=== PATIENT | male | born 1930 | race Caucasian/White ===

== ENCOUNTER 2018-12-23 09:52 | Inpatient (IN) ==
[2018-12-23 10:48] LABS: ALBUMIN 3.7 g/dL (3.5-5.0); CALCIUM 9.9 mg/dL (8.8-10.2); CREATININE 1.2 mg/dL (0.7-1.2); POTASSIUM 4.1 mmol/L (3.5-5.1); TOTAL BILIRUBIN 7.6 mg/dL (0.20-1.00); TOTAL PROTEIN 5.8 g/dL (6.3-8.3)
--- NOTE | 2018-12-23 10:57 | Diag Imaging Result Doc PS360 ---
EXAM: CT HEAD W/O CONTRAST HISTORY: fall TECHNIQUE: CT head without contrast COMPARISON: 04/23/2014 FINDINGS: No parenchymal hemorrhage. No epidural or subdural hematoma. No subarachnoid hemorrhage. Prominent atrophy. There are chronic microvascular ischemic changes with old lacunar infarcts. No mass identified on this noncontrasted exam. No hydrocephalus. No skull fracture. IMPRESSION: 1.No hemorrhage. No injury. 2.Atrophy 3.Chronic ischemic changes with old lacunar infarcts. This exam was performed using automated exposure control, adjustment of mA or kV according to patient size, and/or use of iterative reconstruction technique. Electronically signed by Kushal Kumar 12/23/2018 10:55 AM
--- NOTE | 2018-12-23 11:02 | Diag Imaging Result Doc PS360 ---
CHEST-2 VIEWS - 12/23/2018 INDICATION: fall COMPARISON: 04/23/2014 FINDINGS: Stable left-sided dual-chamber pacemaker. Heart size and pulmonary vascularity appears somewhat enlarged. Lung volumes are much lower. There is some nonspecific ill-defined lower lobe atelectasis or infiltrate bilaterally. IMPRESSION: Nonspecific findings. Electronically signed by Yoni Massey 12/23/2018 11:00 AM
[2018-12-23 11:03] LABS: BASO# 0.01 X1000 (0.0-0.2); BASO% 0.1 % (0.0-0.8); HEMATOCRIT 37.3 % (42.0-52.0); HEMOGLOBIN 13.1 g/dL (14.0-18.0); IMM GRAN# 0.07 X1000 (0.0-0.04); IMM GRAN% 0.5 % (0.0-0.5); LYMPH% 2.3 % (20.5-51.1); MCH 32.3 PG (27-31); MCHC 35.1 g/dL (33-37); MCV 91.9 FL (81-99); MONO# 0.94 X1000 (0.11-0.59); MONO% 7.2 % (1.7-9.3); MPV 10.5 FL (7.4-10.4); NEUT# 11.69 X1000 (1.4-6.5); NEUT% 89.9 % (42.2-75.2); PLT 138 X1000 (130-400); RBC 4.06 XMIL (4.7-6.1); RDW 12.5 % (11.5-14.5); WBC 13.01 X1000 (4.8-10.8)
[2018-12-23 11:04] LABS: INR 1.53; PROTIME 19.1 Seconds (11.0-16.0); PTT 29.7 Seconds (22.3-41.8)
[2018-12-23 11:11] LABS: CK INDEX 1.3 (0.0-2.5); CK-MB 12.98 ng/mL (0.0-5.0)
[2018-12-23 12:38] LABS: BILIRUBIN URINE 2+ (NEGATIVE); BLOOD URINE 4+ (NEGATIVE); CLARITY SL. CLOUDY (CLEAR); COLOR AMBER; GLUCOSE URINE NEGATIVE (NEGATIVE); KETONE URINE TRACE mg/dL (NEGATIVE); LEUKOCYTES URINE 1+ (NEGATIVE); NITRITE URINE POSITIVE (NEGATIVE); PROTEIN URINE 2+(100 mg/dL) mg/dL (NEGATIVE); UROBILINOGEN URINE 8 mg/dL
--- NOTE | 2018-12-23 12:52 | Diag Imaging Result Doc PS360 ---
CT ABD/PELVIS/PULM ARTERIES - 12/23/2018 INDICATION: eleve d-dimer and bili (eval for pte and GB dz) TECHNIQUE: Axial CT images were obtained after administering intravenous contrast. Coronal MIP images were generated. COMPARISON: 07/31/2011 FINDINGS: CHEST: There is no pulmonary embolism. Stable left-sided pacemaker. There is moderate cardiomegaly. There is advanced calcified coronary artery disease. There is also moderately advanced calcified vascular disease of the aortic arch, great vessels, and descending aorta. There is advanced COPD. There is bilateral dependent atelectasis in the costophrenic angles. No suspicious infiltrates. Major airways are all clear. Bones are intact. Abdomen pelvis: The gallbladder is very distended and there is surrounding inflammation. No biliary dilation. There are several cysts of the left kidney which have increased in size. The right kidney remains normal. The pancreas, spleen, and both adrenal glands are stable from prior. There has been increase in size of the fusiform abdominal aortic aneurysm. This measures 4.3 x 3.9 cm. No bowel obstruction or inflammation. Urinary bladder, prostate, and rectum are normal. Bony structures are intact. There is advanced degeneration of the spine. IMPRESSION: 1. Negative for pulmonary embolism. 2. Cardiomegaly. 3. Acute cholecystitis. 4. Enlarging abdominal aortic aneurysm. This exam was performed using automated exposure control, adjustment of mA or kV according to patient size, and/or use of iterative reconstruction technique Electronically signed by Yoni Massey 12/23/2018 12:49 PM
[2018-12-23 12:56] LABS: URINE BACTERIA 1+ /HFP; URINE EPITHELIAL CELLS <10 /HPF (<10)
[2018-12-23 12:57] LABS: URINE SOURCE CLEAN CATCH
[2018-12-23] MEDS ORDERED: ZOSYN 3.375 GM in NS 50 ML IV ONE (13:00)
--- NOTE | 2018-12-23 14:56 | EKG Report ---
Test Performed on : 12/23/2018 10:19:24 AM Test Reason : ER Blood Pressure : / mmHG Vent. Rate : 084 BPM Atrial Rate : 084 BPM P-R Int : 202 ms QRS Dur : 110 ms QT Int : 402 ms P-R-T Axes : 049 -33 -27 degrees QTc Int : 475 ms Sinus rhythm. with occasional ventricular-paced complexes and with occasional premature ventricular c omplexes. Left axis deviation T wave abnormality, consider anterolateral ischemia Prolonged QT Abnormal ECG When compared with ECG of 23-APR-2014 19:45, Electronic ventricular pacemaker has replaced Electronic atrial pacemaker Unconfirmed Result
--- NOTE | 2018-12-23 15:05 | EKG Report ---
Test Performed on : 12/23/2018 10:00:07 AM Test Reason : ER Blood Pressure : / mmHG Vent. Rate : 095 BPM Atrial Rate : 095 BPM P-R Int : 204 ms QRS Dur : 110 ms QT Int : 378 ms P-R-T Axes : 051 -46 -16 degrees QTc Int : 475 ms Sinus rhythm. with frequent and consecutive premature ventricular complexes. Left anterior fascicular block T wave abnormality, consider anterolateral ischemia Prolonged QT Abnormal ECG No previous ECGs available Unconfirmed Result
[2018-12-23] MEDS ORDERED: LR 1,000 ML ONE (16:08)
[2018-12-23] MEDS ORDERED: MARCAINE 0.25% PF/EPI 1:200,000 ONE (16:08)
[2018-12-23] MEDS ORDERED: SODIUM CHLORIDE 0.9% ONE (16:08)
--- NOTE | 2018-12-23 16:27 | HISTORY AND PHYSICAL ---
CHIEF COMPLAINT: Abdominal pain. HISTORY OF PRESENT ILLNESS: This is an 88-year-old male who was in his usual state of health when he was awakened 2 nights ago with severe abdominal pain in his upper and right side of the abdomen. He took some Tums, and this seemed to help; however, yesterday he was somewhat confused, according to his family, and they were keeping a close eye on him, and then today he looked unsteady and confused and fell and so they called the ambulance and took him to the emergency room. Workup in the emergency room reveals leukocytosis, elevated bilirubin and liver function tests, a positive urinalysis, and imaging of his abdomen concerning for acute cholecystitis. Currently the patient denies abdominal pain, nausea, vomiting, headache, shortness of breath, chest pain, or other systemic complaints. PAST MEDICAL HISTORY: Hypertension, dementia, testicular cancer, lymphoma, hypothyroidism. PAST SURGICAL HISTORY: Pacemaker placement, hernia surgery. HOME MEDICATIONS: Levothyroxine, medroxyprogesterone, vitamin B1, thiamine, tamsulosin, losartan, metoprolol, amantadine, ranitidine, oxcarbazepine, donepezil, and risperidone. ALLERGIES: No known drug allergies. FAMILY HISTORY: Reviewed and noncontributory. SOCIAL HISTORY: Negative for tobacco, alcohol, or illicit drug use. He lives alone but has an attentive family. REVIEW OF SYSTEMS: Ten systems reviewed and negative except as noted above. PHYSICAL EXAMINATION: VITAL SIGNS: Temperature 97.9 degrees, pulse 87, respirations 20, blood pressure 141/70, O2 saturation 95%. GENERAL: An elderly male who looks his stated age, in no acute distress. HEENT: Normocephalic, atraumatic. Extraocular muscles intact. Pupils equal, round, and reactive to light. Sclerae mildly icteric. Moist mucous membranes. NECK: Supple. No thyromegaly. CARDIOVASCULAR: Regular rate and rhythm. RESPIRATORY: Bilateral breath sounds. No work of breathing. GASTROINTESTINAL: Soft, nondistended. No organomegaly or mass. He is tender in the epigastrium and right upper quadrant. No rebound or guarding. EXTREMITIES: No clubbing, cyanosis, or edema. MUSCULOSKELETAL: Moves all extremities equally and well. DIAGNOSTIC STUDIES: White blood cell count 13, hemoglobin 13, hematocrit 37, platelet count 138,000. INR 1.5, PTT 29.7. Sodium 134, potassium 4.1, chloride 101, CO2 of 19, BUN 28, creatinine 1.2, glucose 130, total bilirubin 7.6, AST 413, ALT 236, alkaline phosphatase 115. Serum lactate 2.0. Troponin normal. Urinalysis positive for nitrite and white blood cells and 1+ bacteria. CT of chest, abdomen, and pelvis was reviewed, which showed no pulmonary embolus. There is cardiomegaly and calcific coronary artery disease. He has calcific vascular disease of the aortic arch and great vessels. He does have advanced COPD and some dependent atelectasis. No suspicious infiltrates. He has a very distended gallbladder with surrounding inflammation, but no biliary dilation. There are several cysts on the left kidney. There is a fusiform abdominal aortic aneurysm which is infrarenal and measures 4.3 x 3.9 cm. No bowel obstruction. The bladder, prostate, and rectum are normal. Bony structures are intact. There is advanced degeneration of the spine. ASSESSMENT AND PLAN: 1. This 88-year-old male who presents with abdominal pain, confusion, and diagnostic data consistent with acute cholecystitis. 2. He probably has a urine urinary tract infection as well. He has been given a dose of Zosyn. I have recommended laparoscopic cholecystectomy to him. We went over the risks, benefits, and alternatives, including bleeding, infection, injury to surrounding organs such as the intestines or bile duct, perioperative pneumonia, arrhythmia, heart attack, and other imponderables. He understands and agrees to proceed. cc: Tj Bowers MD
[2018-12-23] MEDS ORDERED: FENTANYL ONE (16:36)
[2018-12-23] MEDS ORDERED: QUELICIN (DOSE) ONE (16:41)
[2018-12-23] MEDS ORDERED: ROBINUL ONE (16:41)
[2018-12-23] MEDS ORDERED: AMIDATE ONE (16:41)
[2018-12-23] MEDS ORDERED: XYLOCAINE-MPF 2% ONE (16:41)
[2018-12-23] MEDS ORDERED: NEO-SYNEPHRINE ONE (16:41)
[2018-12-23] MEDS ORDERED: ZOFRAN ONE (16:41)
[2018-12-23] MEDS ORDERED: BREVIBLOC ONE (18:29)
--- NOTE | 2018-12-23 18:47 | Diag Imaging Result Doc PS360 ---
EXAM: OPERATIVE CHOLANGIOGRAM HISTORY: [facility] TECHNIQUE: Intraoperative cholangiogram, single view COMPARISON: None. FINDINGS: Contrast fills the common bile duct and has emptied into the duodenum. There is reflux into the pancreatic duct. No stone or stricture. IMPRESSION: Normal intraoperative cholangiogram. Electronically signed by Kushal Kumar 12/23/2018 6:45 PM
[2018-12-23] MEDS ORDERED: NS 1,000 ML ONE (19:05)
[2018-12-23] MEDS: DILAUDID ONE ×4 (19:05→19:27)
[2018-12-23] MEDS ORDERED: ADENOCARD IV ONE (19:15)
--- NOTE | 2018-12-23 19:23 | OPERATIVE NOTE ---
PROCEDURE DATE: 12/23/2018 PREOPERATIVE DIAGNOSIS: Acute cholecystitis. POSTOPERATIVE DIAGNOSIS: Acute cholecystitis. PROCEDURE: Laparoscopic cholecystectomy with operative cholangiogram. SURGEON: Tj Bowers MD. DYNAMO REPAIRER: Salazar Mace MD. ANESTHESIA: General. ESTIMATED BLOOD LOSS: 50 mL. COMPLICATIONS: None apparent. SPECIMENS: Gallbladder. DRAINS: One #19 Qasim. FINDINGS: The gallbladder was acutely inflamed and gangrenous in areas. It was filled with sludge-like bile. The cholangiogram revealed normal proximal hepatic radicles and distal common bile duct with flow of contrast seen in the duodenum. No filling defects or stenoses appreciated. TECHNIQUE: The patient was brought to the operating room and placed supine on the table. General anesthesia was induced. A Good catheter was placed. He was prepped and draped in usual sterile fashion 0.25% Marcaine with epinephrine was used to anesthetize our incisions. An incision was made at the umbilicus with a knife. The fascia was exposed and incised sharply. Entry into the peritoneal cavity was obtained under direct vision with the Optiview device. Pneumoperitoneum was established. The camera was inserted. There was no evidence of injury to underlying structures. He was placed in reverse Trendelenburg and left rotation. Survey of the abdomen revealed the above findings. Dr. Mace was present and helpful throughout the case with retracting the gallbladder and assisting with exposure and identification of the critical structures. The dome of the gallbladder was punctured with the suction cut out operator and we suctioned out bile for better grasping and retraction. The dome of the gallbladder was then grasped with a corkscrew and lifted up superiorly. Omental adhesions were taken off the wall of the gallbladder bluntly with the suction tip and a Kittner dissectors. A fan retractor was brought in through a separate right lateral abdominal incision and port and held down the omentum and colon out of the way. I dissected out the triangle of Calot with the Maryland forceps and a Kittner until the critical view was obtained. The gallbladder liver junction was seen. There were only 2 structures entering the gallbladder, the cystic duct and cystic artery. The artery was clipped proximally and distally and incised in between with scissors. A clip was placed on the distal cystic duct. A ductotomy was made proximal to this with scissors. A 14-gauge Angiocath was passed through the right upper quadrant. The Taut cholangiogram catheter was passed through this into the cystic duct and held in place with a clip. The cholangiogram was performed with findings as noted above. The clip, catheter, and Angiocath were removed. Three clips were placed, staying inside the cystic duct. It was divided distal to these with scissors. I then began taking the gallbladder off of the liver bed using hook cautery. The back wall of the gallbladder was fused to the liver and the plane was obliterated between the 2. The gallbladder was very friable. It opened up and all the sludge and bile emptied out. We suctioned this out with the suction cut out operator. The gallbladder was removed from the liver bed. After it was removed, it was placed in an EndoCatch bag. I then irrigated it copiously with saline. There was minor bloody oozing from the liver bed which was controlled with cautery and Surgicel gauze. Once I was satisfied that there was no further bleeding, I then copiously irrigated with saline and suctioned out the old blood, bile and sludge. I brought in a #19 Qasim drain and placed it below the edge of the liver in the gallbladder fossa and brought it out through the right lateral port site. It was anchored to the skin with 3-0 nylon. We then removed all the instruments and ports and brought the gallbladder and bag out through the umbilical port site. The umbilical fascia was closed with a figure-of- eight 0 Vicryl x2. The skin was closed with 4-0 subcuticular Monocryl and Steri-Strips. There were no apparent complications. He was awakened in stable condition and transferred to the recovery room. cc: Tj Bowers MD
[2018-12-23] MEDS ORDERED: CARDIZEM IV ONE (20:01)
[2018-12-23] MEDS ORDERED: CARDIZEM 125 MG in D5W 100 ML IV SCH (20:15)
[2018-12-23] MEDS ORDERED: ZOFRAN IV PRN (20:57)
[2018-12-23] MEDS: NS 1,000 ML IV SCH (22:10)
[2018-12-23] MEDS: ZOSYN 3.375 GM in NS 50 ML IV SCH (22:16)
[2018-12-23] MEDS: BUPRENEX IV PRN (22:17)
[2018-12-24] MEDS: COZAAR PO SCH ×2 (00:22→08:44)
[2018-12-24] MEDS: ZANTAC PO SCH ×3 (00:24→20:29)
[2018-12-24] MEDS: FLOMAX PO SCH ×3 (00:24→08:46)
[2018-12-24] MEDS: RISPERDAL PO SCH ×2 (00:25→20:30)
[2018-12-24] MEDS: TOPROL XL PO SCH ×3 (00:25→20:29)
[2018-12-24] MEDS ORDERED: TYLENOL PR PRN (00:28)
[2018-12-24] MEDS ORDERED: OFIRMEV 1000 MG/ISOTONIC SOLN 1,000 MG/100 ML BOTTLE IV ONE (00:29)
[2018-12-24 00:50] LABS: HEMATOCRIT 36.9 % (42.0-52.0); HEMOGLOBIN 12.8 g/dL (14.0-18.0)
[2018-12-24] MEDS: ZOSYN 3.375 GM in NS 50 ML IV SCH ×4 (03:45→20:28)
[2018-12-24] MEDS ORDERED: NS 500 ML IV ONE (03:47)
[2018-12-24] MEDS: NS 1,000 ML IV SCH ×2 (04:36→20:28)
--- NOTE | 2018-12-24 06:57 | CONSULTATION ---
DATE OF CONSULTATION: 12/23/2018 CONSULTING PROVIDER: Tj Bowers MD. REASON FOR CONSULTATION: SVT. HISTORY OF PRESENT ILLNESS: Mr. Hannon is an 88-year-old male who came in today from the emergency room after having severe abdominal pain two nights ago on the right side of his abdomen, right upper quadrant mostly. He took Tums and did not have any relief. He started having some unsteadiness and some confusion and came into the emergency room. It looked like the CT of the his chest, abdomen and pelvis showed a fusiform abdominal aortic aneurysm that was 4.3 x 3.9 but also showed a very distended gallbladder with surrounding inflammation, which was consistent with acute cholecystitis. He was given Zosyn and taken to the OR by Dr. Bowers, where he had a laparoscopic cholecystectomy and a cholangiogram. From what I understand, the surgery went well. He had a MELINDA drain that was left in place. The patient unfortunately started having some SVT after the procedure, and the hospitalist group was consulted for management. He will go to the ICU for further evaluation and treatment. PAST MEDICAL HISTORY: Hypertension, dementia, testicle cancer, lymphoma, hypothyroidism. PREVIOUS SURGICAL HISTORY: Pacemaker placement, hernia surgery, cholecystectomy. FAMILY HISTORY: Could not be reviewed as the patient was very lethargic on examination, related to pain medicine and recent anesthesia. ALLERGIES: No known drug allergies. SOCIAL HISTORY: No tobacco, alcohol or illicit drugs. Lives alone with an attendant family. HOME MEDICATIONS: Levothyroxine, vitamin B1, thiamine, Flomax, losartan, metoprolol, amantadine, ranitidine, oxcarbazepine, donepezil, risperidone. REVIEW OF SYSTEMS: A review of systems could not be completed as the patient was again very sedated. He did reflex a deep stimulus but only made moaning noises. He did not answer any questions during the examination. PHYSICAL EXAMINATION: VITAL SIGNS: Temperature 97.9, pulse 136, respirations 28, oxygen saturation is 94% on 2 L nasal cannula, blood pressure 159/88. GENERAL: An 88-year-old male lying in the ER stretcher. He is status post surgery and still somewhat sedated. He does reflex to stimulus. He is in no acute distress. HEENT: The head is atraumatic and normocephalic. The pupils are miotic, equal, round, pinpoint, and sluggishly reactive to light. Extraocular eye movement is intact. The sclerae are jaundiced. The conjunctivae are pink. The oral mucosa is dry. NECK: Supple. No JVD. No thyromegaly. The trachea is midline. No cervical lymphadenopathy. CARDIAC: S1, S2 appreciated. Tachycardic. Somewhat irregular. No murmurs, gallops, or rubs. LUNGS: Clear to auscultation bilaterally. Poor inspiratory effort. No rhonchi, wheezes, or rales. ABDOMEN: Soft, nondistended. Tender in the right upper and lower quadrant. MELINDA drain draining well. Surgical dressing clean, dry, and intact. Bowel sounds present in all four quadrants. Normoactive. EXTREMITIES: No cyanosis, clubbing, or edema. 2+ pedal pulses. NEUROLOGICAL: Lethargic, status post pain medication as well as surgical sedation. Does not respond verbally. Does reflex to deep stimulus. Cranial nerves could not be tested. DIAGNOSTIC DATA: CT report as in HPI. LABORATORY DATA: White blood cell count 13.01, hemoglobin 13.1, hematocrit 37.3, platelet count 138,000. Sodium 134, potassium 4.1, chloride 101, carbon dioxide 19, BUN 28, creatinine 1.2, glucose 130. Total bilirubin 7.60. Urine: Nitrate positive, 1+ bacteria, 1+ wbc's, 10 to 20 microscopic wbc's. ASSESSMENT AND PLAN: 1. Acute cholecystitis, status post cholecystectomy. We will continue Zosyn, continue Buprenex as needed for pain control, which was ordered by Dr. Bowers. 2. Sinus tachycardia with premature supraventricular beats. He was given esmolol and adenosine which did not slow his heart rate. He will be placed in the intensive care unit . Give 10 mg of Cardizem and then start a Cardizem drip for rate control. We will consider cardiology consultation if necessary. Echocardiogram in the a.m. 3. Urinary tract infection (UTI). Continue Zosyn. Urine culture is pending. 4. Hypertension. Continue home medications. 5. Hypothyroidism. Check thyroid stimulating hormone (TSH). 6. Fluid volume depletion. He received some bolusing. We will continue gentle fluid hydration. 7. Further recommendations per patient's clinical course. I thank Dr. Bowers for this consultation. Dictated by JERALD Llanos for Clifford Duenas MD I have performed a face to face diagnostic evalution. Labs/ xrays- reviewed. Exam- Abd- tender A/P- Acute cholecystitis- Admit,NPO, General surgery consult. Dr. Duenas cc: JERALD Llanos MD Jason R. Seale, MD [facility]
[2018-12-24] MEDS: SYNTHROID PO SCH (08:43)
[2018-12-24] MEDS: PROSCAR PO SCH (08:43)
[2018-12-24] MEDS: ARICEPT PO SCH (08:43)
[2018-12-24] MEDS: CENTRUM SILVER PO SCH (08:43)
[2018-12-24] MEDS: VITAMIN B-1 PO SCH (08:43)
[2018-12-24] MEDS: NAMENDA PO SCH ×2 (08:43→20:28)
--- NOTE | 2018-12-24 08:59 | EKG Report ---
Test Performed on : 12/23/2018 8:14:52 PM Test Reason : ICU. NO EKG ORDER FOR MUSE Blood Pressure : / mmHG Vent. Rate : 136 BPM Atrial Rate : 136 BPM P-R Int : 144 ms QRS Dur : 134 ms QT Int : 294 ms P-R-T Axes : -14 202 025 degrees QTc Int : 442 ms Sinus tachycardia. with premature supraventricular complexes. Right bundle branch block Abnormal ECG When compared with ECG of 23-DEC-2018 10:19, (Unconfirmed) Sinus rhythm. has replaced Electronic ventricular pacemaker Vent. rate has increased BY 52 BPM Confirmed by Greyson GRACE, Carlton Ferro ([id number]) on 12/24/2018 3:52:36 PM
--- NOTE | 2018-12-24 09:20 | PROGRESS NOTE ---
DATE: 12/24/2018 SUBJECTIVE: This morning, Mr. Hannon refers to be feeling a whole lot better. The son was at the bedside at the time of the encounter. OBJECTIVELY: Vital signs: Blood pressure is currently 108/41, pulse of 85, respirations 21, temperature 98.1 degrees, patient is saturating 95% on room air. General: Mr. Hannon is an 88- year-old gentleman. He is in bed in no distress. HEENT: Mucosa is pink and moist. Anicteric. Acyanotic. Neck: Supple. Chest: Good air entry bilateral. There were no crepitations, no rhonchi. Cardiovascular: Regular rate and rhythm. There is a pacemaker generator on the left anterior chest wall. Abdomen: Soft. Recent laparoscopic wounds on the anterior abdominal wall are covered with sterile dressing. There is a MELINDA drain in the right upper quadrant. Extremities: No pedal edema. Central nervous system: Patient is awake, alert, and oriented. LABORATORY DATA: None for this morning yet, still waiting. Blood cultures 2/2 are positive for gram-negative rods. Surgery report has been reviewed. Findings were consistent with a gangrenous gallbladder which has been removed. Intraoperative cholangiogram was normal. ASSESSMENT: 1. Sepsis on presentation secondary to acute cholecystitis complicated with gram-negative dutch bacteremia. The patient is currently on adequate antimicrobial coverage. However, because he has a pacemaker which could potentially be seeded, we will get Infectious Disease to help us manage this complicated infection pathology. 2. Acute gangrenous cholecystitis. The patient is status post laparoscopic cholecystectomy with intraoperative cholangiogram which was normal. 3. Gram-negative dutch bacteremia, most likely coming from the gallbladder infection. We are pending the ID and sensitivity and then modify the antibiotic accordingly. 4. Transaminitis. Presumably due to trauma during surgery versus ischemic liver injury. We are going to continue to monitor this. 5. History of hypertension. The patient did have multiple episodes of low blood pressure readings, so we will withhold his antihypertensive medications for now. 6. Status post pacemaker. The indication is unclear. Patient has had this for the past 20 years. According to him, it was because of cardiac arrhythmia. PLAN: In general, Mr. Hannon seems to be doing fairly okay. He has been started on clears since yesterday. He is day 1 status post laparoscopic cholecystectomy. Findings were consistent with gangrenous cholecystitis. This has been complicated with gram-negative bacteremia. Patient was septic. He has a pacemaker which has potential to have been seeded, so ID has been consulted. cc: Raoul Jeffries MD
[2018-12-24 10:00] LABS: HEMATOCRIT 34.9 % (42.0-52.0); HEMOGLOBIN 11.9 g/dL (14.0-18.0); MCH 32.7 PG (27-31); MCHC 34.1 g/dL (33-37); MCV 95.9 FL (81-99); MPV 11.1 FL (7.4-10.4); RBC 3.64 XMIL (4.7-6.1); WBC 7.52 X1000 (4.8-10.8)
[2018-12-24 10:26] LABS: ALB/GLOB RATIO 0.9; ALBUMIN 2.5 g/dL (3.5-5.0); CREATININE 1.8 mg/dL (0.7-1.2); POTASSIUM 4.3 mmol/L (3.5-5.1); TOTAL BILIRUBIN 5.88 mg/dL (0.20-1.00); TOTAL PROTEIN 5.2 g/dL (6.3-8.3)
[2018-12-24 11:02] LABS: BILIRUBIN URINE SMALL (NEGATIVE); BLOOD URINE LARGE (NEGATIVE); COLOR YELLOW; GLUCOSE URINE NEGATIVE (NEGATIVE); KETONE URINE NEGATIVE (NEGATIVE); LEUKOCYTES URINE NEGATIVE (NEGATIVE); NITRITE URINE NEGATIVE (NEGATIVE); PH URINE 5.5; PROTEIN URINE 50 mg/dL (NEGATIVE); TURBIDITY URINE HAZY (CLEAR); UROBILINOGEN URINE 3 mg/dL (NORMAL)
[2018-12-24 11:03] LABS: URINE SOURCE CATH
[2018-12-24 11:07] LABS: UR EPITHELIAL CELLS <10 /HPF (<10); URINE BACTERIA 2+ /HPF; URINE RBC <10 /HPF (<10); URINE WBC <10 /HPF (<10)
[2018-12-24 11:08] LABS: URINE CASTS GRANULAR PRESENT; URINE CRYSTALS NONE SEEN; URINE SMALL ROUND CELLS NONE SEEN; URINE YEAST NONE SEEN
--- NOTE | 2018-12-24 14:19 | INFECTIOUS DISEASE CONSULT REP ---
DATE: 12/24/2018 CONCLUSION: The patient has a gram-negative dutch bacteremia which most likely originates from the patient's acute cholecystitis. RECOMMENDATIONS: I agree with treating the patient with Zosyn pending the identification of the gram-negative dutch. The patient will require 6 weeks of most likely IV antibiotics for 2 reasons: (1) The patient has a pacemaker which could have become infected hematogenously and (2) The patient has an enlarging aortic aneurysm which also could be infected hematogenously as well. DISCUSSION: The patient was admitted to the hospital with a 2-day history of abdominal pain and fever. He on CT scan was found to have acute cholecystitis. The patient underwent laparoscopic cholecystectomy with operative cholangiogram performed by Dr. Bowers. The patient's CBC shows a white count of 7520, hemoglobin 11.9 and platelet count 108,000. Creatinine is 1.8. GFR is 36. Urine culture is negative. Blood culture is growing a gram-negative dutch. The patient's CT scan shows an acute cholecystitis and an enlarging aortic aneurysm. The patient also has had placement of a permanent pacemaker. PAST MEDICAL HISTORY/REVIEW OF SYSTEMS: Eyes: Patient has decreased hearing, but his vision is okay. Neck: No stiffness. Respiratory: No cough or shortness of breath. Cardiac: No chest pain or palpitations. GI: See present illness. : No dysuria or flank pain. Endocrine: The patient has hypothyroidism, but he does not have diabetes. Bones, joints, muscles: The patient did not have any swollen joints or muscle aches. Neurologic: Patient has not had any seizures. He has not recently lost any motor or sensory function. PREVIOUS HOSPITALIZATIONS AND OPERATIONS: Patient has had a pacemaker installed. Other than that, he told me he had not been in the hospital or had any other surgery. MEDICAL DISEASES: Positive for hypothyroidism, aortic aneurysm, hypertension, non-Hodgkin lymphoma, cardiac arrhythmia requiring placement of a pacemaker, and the patient has had acute cholecystitis and has undergone laparoscopic cholecystectomy. INFECTIOUS DISEASE: No history of pneumonia or urinary tract infection. FAMILY HISTORY: Positive for hypertension, myocardial infarction, stroke and cancer. SOCIAL HISTORY: [place] His recently . He stopped smoking cigarettes about 1989. He also stopped drinking alcoholic beverages a few years back. He does not abuse drugs. He is retired from working at [employer]. He has a dog as a pet. ALLERGIES: The patient's chart lists no known drug allergies. HOME MEDICATIONS: Include the following: Aspirin, calcium, Aricept, Cardura, Pepcid, Proscar, hydrocodone, Synthroid, losartan, Provera, Namenda, metoprolol, Zantac, risperidone, tamsulosin, and thiamine. PHYSICAL EXAMINATION: Vital Signs: Temperature was 101 degrees, now it is 100, pulse 79, respirations 18, blood pressure 147/57. Patient is 5 feet 9 inches tall, weighs 176 pounds. General: This is an ill-appearing elderly male. He is somewhat confused. Head/eyes/ears/nose/throat: He can hear my spoken words and see near objects. He does not have any white patches on his tongue. Neck: No meningismus. Lungs: Clear to auscultation. Cardiovascular: Heart rate is irregular. Thorax: The patient has a pacemaker present on the left side. The site is not erythematous or swollen. The patient also has an increased AP diameter of the chest. Abdomen: Soft and nontender. The patient's small incisions have dressings on them. The patient has a drain present at the right upper quadrant. Neurologic: The patient is awake; sometimes he was confused. He can move his extremities. There is no tremor. As regarding his medical history, the patient's memory miss some things. Integument: No rash noted. Thank you for the consult. cc: MD Raoul Call MD [facility]
--- NOTE | 2018-12-24 14:44 | GENERAL SURGERY PROGRESS NOTE ---
DATE: 12/24/2018 SUBJECTIVE: The patient denies abdominal pain, nausea, vomiting, chest pain, or shortness of breath. He did have some urinary retention last night. A Good catheter was placed and he had 900 mL out at that time. He also has had supraventricular tachycardia and PVCs and has been in the ICU. Cardizem was given. His heart rate has mostly been in the 90s and low 100s this morning with occasional PVCs and SVT. Hospitalist on board and assisting with this. OBJECTIVE: Vital signs: T-max 101 last night at midnight, current temperature 98.7 degrees, pulse 103, respirations 18, blood pressure 147/57, O2 saturation 96%. General: An elderly male in no distress, who looks stated age. CV: Tachycardic. Respiratory: Bilateral breath sounds. No work of breathing. Gastrointestinal: Soft, nondistended. Appropriately tender. Incision is clean, dry, and intact. Right MELINDA drain with mostly bloody-brownish fluid. LABORATORY: White cell count 7.5, hemoglobin 11.9, hematocrit 34.9, platelet count 108,000. Complete metabolic profile reviewed and notable for BUN 39, creatinine 1.8, total bilirubin 5.9, AST 187, ALT 145. ASSESSMENT AND PLAN: This is an 88-year-old male status post laparoscopic cholecystectomy for gangrenous cholecystitis. He has postoperative supraventricular tachycardia. He is in the ICU, being managed by the hospitalist for this. He will remain on Zosyn for the gangrenous cholecystitis with peritoneal contamination. Also, he had a urinalysis concerning for a UTI. I will continue his IV fluids, advance him to a full liquid diet, and again mobilizing him. cc: MD Raoul Salazar MD
[2018-12-24] MEDS: NORCO-7.5 PO PRN (20:29)
[2018-12-24] MEDS ORDERED: LOVENOX SUBQ SCH (21:00)
--- NOTE | 2018-12-24 21:41 | Diag Imaging Result Doc PS360 ---
EXAM: CHEST-1 VIEW INDICATION: positive sepsis screen TECHNIQUE: One view COMPARISON: 12/23/2018 FINDINGS: There has been improvement in atelectasis and/or infiltrate at the right lung base. On the left, it is approximately stable. Prominent central vasculature are stable. No new consolidation is identified. Cardiac silhouette is stable. IMPRESSION: Interval improvement on the right as described. Stable chest, otherwise. Electronically signed by Vidal Garcia 12/24/2018 9:38 PM
[2018-12-24 21:49] LABS: LYMPH# 0.43 X1000 (1.2-3.4); LYMPH% 6.3 % (20.5-51.1); MCH 32.4 PG (27-31); MCHC 34.3 g/dL (33-37); MCV 94.6 FL (81-99); MONO# 0.43 X1000 (0.11-0.59); MONO% 6.3 % (1.7-9.3); MPV 10.4 FL (7.4-10.4); NEUT# 6.01 X1000 (1.4-6.5); NEUT% 87.4 % (42.2-75.2); PLT 107 X1000 (130-400); RDW 12.8 % (11.5-14.5); WBC 6.87 X1000 (4.8-10.8)
[2018-12-24 21:56] LABS: INR 1.43; PROTIME 18.6 Seconds (11.0-16.0)
[2018-12-24 21:57] LABS: PTT 41.7 Seconds (22.3-41.8)
[2018-12-24 22:00] LABS: BANDS 5 % (0-1); LYMPHS 7 % (21-51); MONO 5 % (1-9); SEGS 83 % (42-75)
[2018-12-24 22:31] LABS: ALB/GLOB RATIO 1.5; ALBUMIN 2.8 g/dL (3.5-5.0); CALCIUM 8.2 mg/dL (8.8-10.2); CREATININE 1.4 mg/dL (0.7-1.2); POTASSIUM 3.9 mmol/L (3.5-5.1); TOTAL BILIRUBIN 3.4 mg/dL (0.20-1.00); TOTAL PROTEIN 4.7 g/dL (6.3-8.3)
[2018-12-24 23:18] LABS: CK INDEX 0.5 (0.0-2.5); CK-MB 13.01 ng/mL (0.0-5.0)
--- NOTE | 2018-12-25 01:04 | ECHO REPORT ---
ORDER DATE: 12/24/2018 MEASUREMENTS: Septal thickness 1.2, left ventricular internal diameter in diastole 5.7, aortic root 2.8, left atrium 3.5. SUMMARY: 1. Technically difficult study due to limited acoustic window quality. 2. Aortic valve is trileaflet and demonstrates mild sclerotic change with normal aortic valve opening evident. The peak gradient across aortic valve is less than 10 mmHg. Mitral, tricuspid, and pulmonic valves are without evidence of structural abnormality with very mild mitral regurgitation, mild tricuspid regurgitation, and mild pulmonic insufficiency. The estimated systolic PA pressure by Doppler is 55 mmHg, suggesting moderate pulmonary hypertension. Aortic root is normal in size. 3. Borderline left ventricular enlargement with mild concentric left hypertrophy suggested. Estimated left ventricular ejection fraction approximately 35%. There is hypokinesis of the basal to mid lateral wall, severe hypokinesis of the basal to mid inferolateral wall, it is approximately 35%. There is hypokinesis of the basal to mid lateral wall and severe hypokinesis of the basal to mid inferolateral wall. Left atrium is normal in size. The right atrium and right ventricle are grossly normal in size with grossly preserved right ventricular systolic function. Pacemaker lead is evident in the right ventricle. 4. No pericardial effusion. 5. Inferior vena cava not well demonstrated. cc: MD Morgan Harris CRNP Raphael K. Quansah, MD
[2018-12-25] MEDS: NORCO-7.5 PO PRN (01:11)
[2018-12-25] MEDS: ZOSYN 3.375 GM in NS 50 ML IV SCH ×4 (04:39→20:20)
[2018-12-25] MEDS: BUPRENEX IV PRN (04:40)
[2018-12-25 06:05] LABS: EOS# 0.03 X1000 (0.0-0.7); EOS% 0.4 % (0.0-10.0); HEMATOCRIT 34.3 % (42.0-52.0); HEMOGLOBIN 11.9 g/dL (14.0-18.0); LYMPH# 0.68 X1000 (1.2-3.4); LYMPH% 9.8 % (20.5-51.1); MCH 32.6 PG (27-31); MCHC 34.7 g/dL (33-37); MONO# 0.45 X1000 (0.11-0.59); MONO% 6.5 % (1.7-9.3); MPV 11.2 FL (7.4-10.4); NEUT# 5.81 X1000 (1.4-6.5); NEUT% 83.3 % (42.2-75.2); PLT 107 X1000 (130-400); RBC 3.65 XMIL (4.7-6.1); RDW 12.8 % (11.5-14.5); WBC 6.97 X1000 (4.8-10.8)
[2018-12-25 06:30] LABS: ALB/GLOB RATIO 0.9; ALBUMIN 2.4 g/dL (3.5-5.0); CALCIUM 9.1 mg/dL (8.8-10.2); CREATININE 1.3 mg/dL (0.7-1.2); POTASSIUM 3.7 mmol/L (3.5-5.1); TOTAL BILIRUBIN 2.91 mg/dL (0.20-1.00); TOTAL PROTEIN 5.1 g/dL (6.3-8.3)
--- NOTE | 2018-12-25 08:04 | EKG Report ---
Test Performed on : 12/25/2018 03:32:29 AM Test Reason : ICU. NO EKG ORDER FOR MUSE Blood Pressure : / mmHG Vent. Rate : 139 BPM Atrial Rate : 144 BPM P-R Int : 000 ms QRS Dur : 132 ms QT Int : 336 ms P-R-T Axes : 000 198 011 degrees QTc Int : 511 ms Atrial fibrillation. with rapid ventricular response. with premature ventricular or aberrantly conduc inder complexes. Right bundle branch block Abnormal ECG When compared with ECG of 23-DEC-2018 20:14, Atrial fibrillation. has replaced Sinus rhythm. Confirmed by Greyson GRACE, Carlton Ferro ([id number]) on 12/25/2018 5:09:35 PM
[2018-12-25] MEDS ORDERED: LANOXIN PO ONE (08:48)
[2018-12-25] MEDS: CENTRUM SILVER PO SCH (08:51)
[2018-12-25] MEDS: PROSCAR PO SCH (08:51)
[2018-12-25] MEDS: ZANTAC PO SCH ×2 (08:51→20:19)
[2018-12-25] MEDS: SYNTHROID PO SCH (08:52)
[2018-12-25] MEDS: FLOMAX PO SCH (08:52)
[2018-12-25] MEDS: TOPROL XL PO SCH ×3 (08:52→20:19)
[2018-12-25] MEDS: NAMENDA PO SCH ×2 (08:52→20:18)
[2018-12-25] MEDS: VITAMIN B-1 PO SCH (08:52)
[2018-12-25] MEDS: ARICEPT PO SCH (08:52)
--- NOTE | 2018-12-25 09:54 | PROGRESS NOTE ---
DATE: 12/25/2018 SUBJECTIVE: This morning, Mr. Hannon refers to be feeling a whole lot better. I understand last night, he went into atrial fibrillation with RVR and had to be started on Cardizem drip. He is still currently in atrial fibrillation with RVR, even on 10 mg of Cardizem drip per hour. OBJECTIVE: Current Vital Signs: Blood pressure is 118/66, pulse of 123, respirations 14, temperature 98.4. General: Mr. Hannon is an 88-year-old, elderly, male. He was sitting up in the bed. No distress. HEENT: Mucosa is pink and moist. Anicteric. Acyanotic. Neck: Supple. Chest: There was good air entry bilaterally. A few crackles in the posterior lung elliott. Cardiovascular: Irregularly irregular and tachycardic. No murmurs, no rubs. There is an old pacemaker generator on the left anterior chest wall. GI: Abdomen is soft. There is a dressing over the anterior abdominal wall. MELINDA drain is also in the right upper quadrant. Extremities: No pedal edema. : Good catheter is in place. PC TECHNICIAN: The patient is awake, alert, and oriented. LABORATORY DATA: WBC is 6.97, hemoglobin is 11.9, platelet count of 107,000. Chemistry is also reviewed. Bicarb is 15, BUN is 36, and creatinine is 1.3, which is trending down. Liver enzymes are also trending down. IMAGING: The patient did have an echocardiogram done yesterday, which shows an ejection fraction of 35%, with wall motion abnormalities which would be consistent with ischemic cardiomyopathy. MICROBIOLOGY DATA: So far, blood culture is growing gram-negative dutch. Urine culture was negative. ASSESSMENT AND PLAN: 1. Sepsis on presentation secondary to acute cholecystitis complicated with gram-negative dutch bacteremia. The patient is currently on Zosyn. Infectious Disease is on board. 2. Acute gangrenous cholecystitis, status post laparoscopic cholecystectomy with intraoperative cholangiogram, which was normal. 3. Gram-negative dutch bacteremia, most likely coming from the gallbladder infection. We are still pending the identity and sensitivity to modify the antibiotics accordingly. 4. Transaminitis, improving, presumably ischemic liver injury. 5. Acute kidney injury, also improving. Will continue with the gentle hydration. 6. Atrial fibrillation with rapid ventricular response. The patient is currently on Cardizem, and he was also at home on Toprol, which has been started. However, he continues to be in fast rhythm. We are going to give him digoxin 250 mcg stat, and get Cardiology also to evaluate him today. 7. Congestive heart failure with ejection fraction of 35%. The patient currently looks euvolemic. 8. Suspected ischemic cardiomyopathy with abnormal echocardiogram. Cardiology has been consulted. In general, Mr. Hannon presented mainly because of sepsis secondary to gallbladder infection. Gallbladder was removed yesterday. He has a history of some cardiac arrhythmias before, which he is not able to specify, and as a result of that, he had a pacemaker placed about 20 years ago. Last night, he went into atrial fibrillation with rapid ventricular response, and he continues to be in a fast rhythm. He is on Cardizem. We have started him on his Toprol from home, and he has been given a 1-time dose of digoxin. Cardiology has been consulted, and will follow further recommendations from them. The patient is originally under the services of the Surgery team. Infectious Disease is also on board. cc: Raoul Jeffries MD
--- NOTE | 2018-12-25 14:04 | CONSULTATION ---
DATE OF CONSULTATION: 12/25/2018 IMPRESSION: 1. Postoperative atrial fibrillation. 2. Status post laparoscopic cholecystectomy for acute cholecystitis on 12/23/2018. 3. Atherosclerotic coronary disease with history of previous myocardial infarction in the past as well as coronary angioplasty/stent. This reportedly was in 2007 but records are pending. 4. Status post permanent pacemaker many years ago. 5. Chronic obstructive pulmonary disease. 6. Lymphoma in remission. 7. Hypertension. RECOMMENDATIONS: 1. Controlled heart rate With metoprolol primarily to allow IV diltiazem to be weaned. 2. Anticoagulate with Lovenox 1 mg/kg subcu q.12h until the patient is back in sinus rhythm. 3. Conservative cardiovascular management overall. HISTORY: This 88-year-old white male with past history of atherosclerotic coronary disease, previous myocardial infarction, previous coronary angioplasty/stenting several years ago, hypertension, COPD, and lymphoma in remission. She was admitted several days ago after presenting with acute abdominal pain as well as confusion. Evaluation disclosed acute cholecystitis, and he had urgent laparoscopic cholecystectomy on 12/23/2018. His recovery has been uneventful. However, this morning he went into atrial fibrillation with rapid ventricular rate and was moved to intensive care unit. He has been started on intravenous Cardizem, and his rate has come under better control. He is not aware of his arrhythmia. There has been no recent chest pain. PAST MEDICAL HISTORY: 1. Atherosclerotic coronary disease as outlined above. 2. Hypertension. 3. Chronic obstructive pulmonary disease. 4. Lymphoma in remission. 5. History of testicular cancer. 6. Hypothyroidism. PAST SURGICAL HISTORY: Previous permanent pacemaker implant and hernia surgery. ALLERGIES: No known drug allergies. MEDICATIONS PRIOR TO ADMISSION: As listed. SOCIAL HISTORY: He is . He lives at home. He quit smoking several years ago and previously smoked a pack of cigarettes per day for many years. He does not use alcohol. FAMILY HISTORY: Negative for premature coronary disease. REVIEW OF SYSTEMS: Pulmonary: Negative. Gastrointestinal: Noncontributory beyond history of present illness. Constitutional: Negative. Remainder of the review of systems negative/noncontributory with 14 total systems reviewed. PHYSICAL EXAMINATION: General: This is a white male in no distress on supplemental oxygen per nasal cannula. Vital signs: Blood pressure 132/59, heart rate 105 and irregular with ECG monitor showing atrial fibrillation. Weight 172 pounds. HEENT: Extraocular movements intact. Mucous membranes moist. Neck: Supple. No jugular venous distention. No carotid bruits. Chest: Clear to auscultation. Cardiovascular: Exam reveals an irregular rate and rhythm without appreciable murmur or gallop. Abdomen: Soft. Bowel sounds are audible. Extremities: Without edema. Neurologic: Alert and responsive. Speech is fluent. Moves all 4 extremities equally well. Skin: Warm and dry. Psychiatric: Reveals mood to be appropriate. DATA: A 12 lead EKG from this morning demonstrates atrial fibrillation with rapid ventricular rate and right bundle branch block. LABORATORY DATA: Sodium 138, potassium 3.7, and chloride 104, carbon dioxide 19. BUN 36 and creatinine 1.3, glucose 264. Troponin T less than 0.01. Followup troponin T less than 0.01. White blood cell count 6.97, hematocrit 34.3, hemoglobin 9.9, and platelet count 107,000. TSH 4.67. cc: MD Raoul Harris MD
--- NOTE | 2018-12-25 14:52 | GENERAL SURGERY PROGRESS NOTE ---
DATE: 12/25/2018 SUBJECTIVE: The patient is doing okay. Mild abdominal soreness and fullness but no nausea or vomiting. He is not sure if he is passing gas. He drinks some liquids but not a lot. He continues to have an irregular heart rate and his blood cultures have been positive for gram- negative rods. OBJECTIVE: Vital Signs: Temperature 97.6 degrees, pulse is in the 90s to low 100s, blood pressure mostly in the 90s systolic, O2 saturation 96%, respiratory rate 17 to 24. Urine output 1000 mL. General: He is awake, alert, oriented x3. No acute distress. CV: Tachycardic. Respiratory: Bilateral breath sounds. No work of breathing. GI: Soft, mildly distended. A few hypoactive bowel sounds are noted. Incisions are clean, dry, and intact. MELINDA drain is bloody. No kelvin bile. Laboratory: White blood cell count 6.9, hemoglobin 11.9. BUN 36, creatinine 1.3. Total bilirubin 2.9, AST 144, ALT 110, alkaline phosphatase 72. Urine culture negative. ASSESSMENT AND PLAN: An 88-year-old male, now postop day 2 laparoscopic cholecystectomy for gangrenous cholecystitis. He also has gram-negative dutch bacteremia, cardiac arrhythmia. We will continue his Zosyn. He will probably need a peripherally inserted central catheter line prior to discharge. Cardiology has been consulted for his arrhythmia. We will keep him on a liquid diet for now as I suspect he has a mild ileus. cc: MD Raoul Salazar MD
--- NOTE | 2018-12-25 14:53 | INFECTIOUS DISEASE PROGRESS NO ---
DATE: 12/25/2018 PRESENT ILLNESS: Mr. Hannon has a gram-negative dutch bacteremia which probably originated from his acute cholecystitis. He is status post laparoscopic cholecystectomy. MEDICATIONS: Today is day 2 of Zosyn 3.375 g IV every 6 hours. PHYSICAL EXAMINATION: Vital Signs: Temperature is 97.8 degrees, pulse rate 82, respiratory rate 17, blood pressure 117/63, O2 saturation is 95% on 5 L nasal cannula. General: This is a chronically ill-appearing, elderly gentleman. He is lying in the bed, confused; currently in no acute distress. HEENT: Atraumatic, normocephalic. Oral mucous membranes are pink and moist. Conjunctivae are pink. Neck: Supple. Trachea is midline. Cardiovascular: Irregularly irregular. Atrial fibrillation on the monitor with occasional ventricular ectopic beats. Respiratory: Lung sounds are clear in the upper lobes, diminished in the bases. Abdomen: Soft, round and tender with Steri-Strips in place over the incisions which are dry and intact. There is also a MELINDA drain on the right side with serosanguineous drainage noted in the bulb. Neurologic: He is awake, alert and appropriate with periods of confusion. He is able to move all his extremities in the bed with generalized weakness. LABORATORY AND X-RAY: Today his white count is 6.97, hemoglobin 11.9, platelet count 107,000. Creatinine is 1.3, GFR 52. Total bilirubin is 2.91, AST 144, ALT 110, alkaline phosphatase 72. No imaging reports today. There is a gram-negative dutch bacteremia in 2 out of 2 cultures. His initial urine culture showed no growth. However, there is another urine culture pending. ASSESSMENT AND PLAN: Mr. Hannon has a gram-negative dutch bacteremia for which he is receiving IV Zosyn, which we will continue at this time. I have spoken with the microbiology lab and they are hoping to have the final culture results in the morning. Due to the presence of a pacemaker, as well as an enlarging aortic aneurysm as seen on CT scan, the patient will need 6 weeks of treatment for his bacteremia followed by a prolonged oral antibiotic. We will also continue to follow his urine culture. These plans have been discussed with and recommended by Dr. Frey COMORBIDITIES: For Mr. Hannon include that he is elderly with atrial fibrillation, enlarging abdominal aortic aneurysm, presence of a pacemaker, and COPD. Dictated by JERALD Dillon for Zbigniew Bauman MD cc: MD Raoul Call MD MTDD
[2018-12-25] MEDS: NS 1,000 ML IV SCH (18:13)
[2018-12-25] MEDS: RISPERDAL PO SCH (20:19)
[2018-12-25] MEDS: LOVENOX SUBQ SCH (20:19)
[2018-12-26] MEDS: TOPROL XL PO SCH ×4 (03:35→20:35)
[2018-12-26] MEDS: ZOSYN 3.375 GM in NS 50 ML IV SCH (03:35)
[2018-12-26 05:02] LABS: BASO# 0.01 X1000 (0.0-0.2); BASO% 0.1 % (0.0-0.8); EOS# 0.15 X1000 (0.0-0.7); EOS% 1.6 % (0.0-10.0); HEMATOCRIT 35.3 % (42.0-52.0); IMM GRAN# 0.03 X1000 (0.0-0.04); IMM GRAN% 0.3 % (0.0-0.5); LYMPH# 0.91 X1000 (1.2-3.4); LYMPH% 9.4 % (20.5-51.1); MCH 32.3 PG (27-31); MCV 94.9 FL (81-99); MONO% 7.2 % (1.7-9.3); MPV 11.5 FL (7.4-10.4); NEUT# 7.86 X1000 (1.4-6.5); NEUT% 81.4 % (42.2-75.2); PLT 128 X1000 (130-400); RBC 3.72 XMIL (4.7-6.1); WBC 9.66 X1000 (4.8-10.8)
[2018-12-26 05:18] LABS: ALB/GLOB RATIO 0.8; ALBUMIN 2.4 g/dL (3.5-5.0); CALCIUM 9.4 mg/dL (8.8-10.2); CREATININE 1.4 mg/dL (0.7-1.2); POTASSIUM 3.8 mmol/L (3.5-5.1); TOTAL BILIRUBIN 2.32 mg/dL (0.20-1.00); TOTAL PROTEIN 5.6 g/dL (6.3-8.3)
--- NOTE | 2018-12-26 07:03 | EKG Report ---
Test Performed on : 12/26/2018 06:39:43 AM Test Reason : afib Blood Pressure : / mmHG Vent. Rate : 085 BPM Atrial Rate : 085 BPM P-R Int : 194 ms QRS Dur : 112 ms QT Int : 396 ms P-R-T Axes : 044 -60 006 degrees QTc Int : 471 ms Sinus rhythm. with frequent and consecutive premature ventricular complexes. and fusion complexes Left axis deviation Pulmonary disease pattern Nonspecific T wave abnormality Prolonged QT Abnormal ECG When compared with ECG of 26-DEC-2018 06:38, (Unconfirmed) fusion complexes are now present Criteria for Lateral infarct are no longer present Nonspecific T wave abnormality, improved in Lateral leads Confirmed by Greyson GRACE, Carlton Ferro ([id number]) on 12/26/2018 12:30:31 PM
[2018-12-26] MEDS: NS 1,000 ML IV SCH (07:31)
[2018-12-26] MEDS: KEFZOL 1 GM/D5W 1 GM/50 ML IVPB IV SCH ×3 (08:44→23:24)
[2018-12-26] MEDS: LOVENOX SUBQ SCH (08:44)
[2018-12-26] MEDS: CENTRUM SILVER PO SCH (08:45)
[2018-12-26] MEDS: ARICEPT PO SCH (08:45)
[2018-12-26] MEDS: PROSCAR PO SCH (08:45)
[2018-12-26] MEDS: NAMENDA PO SCH ×2 (08:45→20:34)
[2018-12-26] MEDS: SYNTHROID PO SCH (08:45)
[2018-12-26] MEDS: VITAMIN B-1 PO SCH (08:45)
[2018-12-26] MEDS: ZANTAC PO SCH ×2 (08:45→20:34)
[2018-12-26] MEDS: FLOMAX PO SCH (08:45)
--- NOTE | 2018-12-26 09:30 | PROGRESS NOTE ---
DATE: 12/26/2018 SUBJECTIVE: This morning, Mr. Hannon refers to be doing a whole lot better. No new complaints. OBJECTIVE: Vital signs: Blood pressure is 155/69, pulse of 99, respirations 26, temperature is 98.3 degrees. Patient was saturating 96% on 4 L. General: Mr. Hannon is an 88-year-old gentleman. He is in bed. No distress. HEENT: Mucosa is pink and moist. Anicteric. Acyanotic. Neck: Supple. Chest: Good air entry bilaterally. Few crackles posteriorly. Cardiovascular: Regular rate and rhythm. No murmurs, no rubs, no gallops. There is an old pacemaker generator on the left anterior chest wall. Abdomen: Soft, nontender. There is a dressing over the laparoscopic wound site. MELINDA drain is still in place. Extremities: No pedal edema. Good catheter is in place. POLITICAL RESEARCH SCIENTIST: Patient is awake, alert, and oriented. There is no focal neurological deficit. LABORATORY DATA: WBC is 9.6, hemoglobin is 12.0, platelet count of 128,000. Chemistry is also reviewed. Creatinine is 1.4. Liver enzymes continue to be trending down. Microbiology data: Blood cultures positive is now out. The result shows Escherichia coli which is pansensitive. ASSESSMENT: 1. Sepsis on presentation secondary to acute gangrenous cholecystitis, complicated with Escherichia coli bacteremia. The patient used to be on Zosyn. This has been changed to Keflex this morning by Infectious Disease. 2. Acute gangrenous cholecystitis status post laparoscopic cholecystectomy with intraoperative cholangiogram which was normal. Today is day 3 postop. Patient is tolerating diet. 3. Transaminitis, improving. Likely due to acute ischemic liver injury. 4. Acute kidney injury. The patient continues to be making adequate urine. Creatinine is down to 1.4, has been fairly the same as yesterday. We will continue with gentle IV hydration. 5. Atrial fibrillation with rapid ventricular response, resolved. The patient is currently in sinus, has been evaluated by Cardiology, and he is on a beta ron. 6. Congestive heart failure with ejection fraction of 25%. The patient is currently euvolemic. 7. Suspected ischemic cardiomyopathy with abnormal echo. The patient does have history of coronary angioplasty/stents in 2008 noted. So, in general, I think Mr. Hannon is doing a lot better. Heart rate has normalized. It is actually now in sinus. Continue with the beta ron. Blood culture shows Escherichia coli. Antibiotics have been changed. We are going to continue with the current management. I think Mr. Hannon is clinically stable for transfer to the floor. However, we would wait for him to be seen by his primary team (Surgery team) and make a decision. cc: Raoul Jeffries MD
--- NOTE | 2018-12-26 09:51 | INFECTIOUS DISEASE PROGRESS NO ---
DATE: 12/26/2018 PRESENT ILLNESS: The patient has an E coli bacteremia which most likely originated from his acute cholecystitis. MEDICATIONS: This is the third day of antibiotics for the patient's E coli bacteremia. The patient has been receiving Zosyn. PHYSICAL EXAMINATION: Vital Signs: Temperature is 99 degrees, pulse 99, respirations 26, blood pressure 155/69. General: This is a chronically ill-appearing, elderly male. He is in no acute distress. Head, eyes, ears, nose and throat: He can hear my spoken words and see near objects. He does not have any white patches in his mouth. Neck: No pain in the neck when the patient moves his head or neck. Lungs: Clear to auscultation. Cardiovascular: Heart rate irregular. Thorax: Patient has a pacemaker present on the left side. The site is not swollen or erythematous. Abdomen: Soft and nontender. The patient's incisions and drain site are not erythematous or bleeding. Neurologic: The patient is awake. He can move his extremities. There is no tremor. He is eating well. LAB AND X-RAY: Blood cultures are growing E coli. The patient's CBC shows a white count of 9660, hemoglobin 12, platelet count 128,000. Creatinine is 1.4. GFR is 38. ASSESSMENT AND PLAN: Patient has an Escherichia coli bacteremia. Unfortunately, he has a pacemaker in place and he also has an enlarging aortic aneurysm. Both of these structures could have become infected hematogenously with Escherichia coli. Therefore, my plan is to treat for 6 weeks with intravenous Ancef and follow that with Keflex in a dose of 500 mg oral every 12 hours indefinitely in case the pacemaker or the aneurysm became infected. Today, I am also going to draw repeat blood cultures and hopefully they will be sterile. COMORBIDITIES: The patient is elderly. He has an enlarging aortic aneurysm. He also has a pacemaker in place. He has COPD and atrial fibrillation as well. cc: MD Raoul Call MD MTDD
[2018-12-26] MEDS: D5 1/2 NS + KCL 20 MEQ 1,000 ML IV SCH (12:51)
--- NOTE | 2018-12-26 19:13 | GENERAL SURGERY PROGRESS NOTE ---
DATE: 12/26/2018 SUBJECTIVE: He is feeling better. No significant abdominal pain, nausea or vomiting. He is tolerating a liquid diet. OBJECTIVE: Vital Signs: He is afebrile. Pulse 85, O2 sat 96%, blood pressure 136/70, respiratory rate 21. Urine output 805. Qasim drain output 20 mL. General: He is awake, alert and oriented x 3. No acute distress. Cardiovascular: Regular rate and rhythm. Respiratory: Bilateral breath sounds. No work of breathing. Gastrointestinal: Soft, nondistended. Appropriately tender incisions are clean, dry and intact. MELINDA drain has bloody fluid, no bile. ASSESSMENT AND PLAN: An 88-year-old male status post laparoscopic cholecystectomy. He is postoperative day #3. He will continue on antibiotics long-term and once his blood cultures are clear we are planning a PICC line. I will advance his diet to a GI soft diet now and transfer him to the Step-Down Unit. He is off drips and his rate appears to be back in sinus rhythm now. I appreciate all the sales development consultant's assistance. cc: MD Raoul Salazar MD
--- NOTE | 2018-12-26 19:27 | PROGRESS NOTE ---
DATE: 12/26/2018 SUBJECTIVE: Patient reports feeling much better. He denies chest discomfort or shortness of breath. He has converted back to sinus rhythm. OBJECTIVE: Vital Signs: Blood pressure 152/81, heart rate 91 and regular, with ECG monitor showing sinus rhythm, oxygen saturation 96%. There is no significant jugular venous distention. Chest: Clear to auscultation. Cardiac: Regular rate and rhythm without appreciable murmur or gallop. There is no evidence of peripheral edema. LABORATORY DATA: Includes a white blood cell count of 9.66, hematocrit 35.3, hemoglobin 12.0, platelet count 128,000. Sodium 139, potassium 3.8, chloride 106, carbon dioxide 22, BUN 37, creatinine 1.4, glucose 125. IMPRESSION: 1. Postoperative atrial fibrillation. Patient has converted back to sinus rhythm. 2. Status post laparoscopic cholecystectomy for acute cholecystitis on 12/23/2018. 3. Atherosclerotic coronary disease with previous myocardial infarction in the past, as well as previous coronary angioplasty/stent. Patient has associated ischemic cardiomyopathy with a left ventricular ejection fraction of 35%. He continues without angina. 4. Status post permanent pacemaker many years ago. 5. Chronic obstructive pulmonary disease. 6. Lymphoma, in remission. 7. Hypertension. RECOMMENDATIONS: 1. Continue metoprolol. 2. Switch to deep venous thrombosis prophylaxis dose of Lovenox for now. If he has further atrial fibrillation, will contemplate extended use of Lovenox and long-term anticoagulation. 3. Conservative cardiovascular management overall. cc: MD Raoul Harris MD
[2018-12-26] MEDS: RISPERDAL PO SCH (20:34)
[2018-12-27] MEDS: TOPROL XL PO SCH (03:59)
[2018-12-27] MEDS: KEFZOL 1 GM/D5W 1 GM/50 ML IVPB IV SCH ×2 (08:28→16:31)
[2018-12-27] MEDS: PROSCAR PO SCH (08:29)
[2018-12-27] MEDS: VITAMIN B-1 PO SCH (08:29)
[2018-12-27] MEDS: D5 1/2 NS + KCL 20 MEQ 1,000 ML IV SCH (08:29)
[2018-12-27] MEDS: ZANTAC PO SCH ×2 (08:29→21:06)
[2018-12-27] MEDS: LOVENOX SUBQ SCH (08:29)
[2018-12-27] MEDS: NAMENDA PO SCH ×2 (08:29→21:06)
[2018-12-27] MEDS: FLOMAX PO SCH (08:29)
[2018-12-27] MEDS: ARICEPT PO SCH (08:29)
[2018-12-27] MEDS: CENTRUM SILVER PO SCH (08:29)
[2018-12-27] MEDS: LOPRESSOR PO SCH ×3 (08:29→21:07)
[2018-12-27] MEDS ORDERED: LOVENOX SUBQ SCH (09:00)
[2018-12-27] MEDS ORDERED: DULCOLAX PR ONE (09:42)
--- NOTE | 2018-12-27 10:06 | PROGRESS NOTE ---
DATE: 12/27/2018 SUBJECTIVE: This morning Mr. Hannon refers to be feeling okay. No new complaints. He said he has not had any bowel movement and has not passed any gas. He said he also does not have a very good appetite. OBJECTIVE: Vital signs: Blood pressure is 163/70, pulse of 74, respiration is 18, temperature 98.3 degrees, and the patient is saturating 99% on nasal cannula. General exam: Mr. Hannon is an 88-year-old male. He is in bed in no distress. HEENT: Mucosa is pink and moist. Anicteric. Acyanotic. Neck: Supple. Chest: Good air entry bilateral. There are no crepitations, no rhonchi. Cardiovascular: Regular rate and rhythm. No murmurs, no rubs, no gallops. There is a generator pocket in the left anterior chest wall. GI: Abdomen is soft. It is distended. Bowel sounds extremely hypoactive. There is a MELINDA drain in place. Extremities: No pedal edema. Good catheter is still in place. TORPEDO WORKER: Patient is awake, alert, and oriented. There is no focal neurological deficit. LABORATORY DATA: None for this morning. MICROBIOLOGY: So far, microbiology data for the repeat blood culture is still pending. PATIENT MEDICATIONS: Have all been reviewed. No changes. ASSESSMENT: 1. Sepsis on presentation secondary to acute gangrenous cholecystitis, complicated with Escherichia coli bacteremia. The patient is currently on Ancef intravenous. 2. Acute gangrenous cholecystitis status post laparoscopic cholecystectomy with intraoperative cholangiogram. Today is day 4 postoperative. 3. Mildly distended abdomen secondary to postoperative ileus. Would encourage the patient to be more mobile and get him to sit up more at the bedside, and get the patient a dose of rectal Dulcolax. 4. Acute kidney injury. The patient is still on intravenous hydration. We will repeat his electrolytes and renal function for tomorrow. 5. Postoperative atrial fibrillation with rapid ventricular response, currently rate controlled. The patient is on beta ron. 6. History of congestive heart failure with ejection fraction of 25% on echocardiogram, currently euvolemic. 7. History of ischemic cardiomyopathy. PLAN: So, in general, Mr. Hannon is fairly stable today. We are going to discontinue the Good catheter and get him to be more mobile to see if we can overcome the postoperative ileus today. The patient's atrial fibrillation is has converted to sinus and better rate control. cc: Raoul Jeffries MD
--- NOTE | 2018-12-27 11:33 | PROGRESS NOTE ---
DATE: 12/27/2018 SUBJECTIVE: Mr. Branadn Hannon is an 88-year-old white male, who is postop day 4 from a laparoscopic cholecystectomy per Dr. Bowers for acute cholecystitis. He has a drain in place that is not draining bile. His abdomen remains distended. He is awake and looks comfortable. His heart rate is 74, blood pressure 163/70, O2 saturation 99%. He is on a GI soft diet. Physical Therapy is seeing him, and we need to increase his activity. Will leave his drain in place for now. cc: MD Raoul Sommer MD
[2018-12-27] MEDS: COZAAR PO SCH ×2 (11:48→21:06)
[2018-12-27] MEDS: RISPERDAL PO SCH (21:06)
[2018-12-28] MEDS: LOPRESSOR PO SCH ×4 (01:13→21:11)
[2018-12-28] MEDS: KEFZOL 1 GM/D5W 1 GM/50 ML IVPB IV SCH ×4 (01:13→23:57)
[2018-12-28] MEDS: D5 1/2 NS + KCL 20 MEQ 1,000 ML IV SCH (04:09)
[2018-12-28] MEDS: SYNTHROID PO SCH ×2 (05:46→06:03)
[2018-12-28 06:29] LABS: BASO# 0.01 X1000 (0.0-0.2); BASO% 0.1 % (0.0-0.8); EOS# 0.09 X1000 (0.0-0.7); EOS% 1.3 % (0.0-10.0); HEMATOCRIT 33.3 % (42.0-52.0); HEMOGLOBIN 11.3 g/dL (14.0-18.0); IMM GRAN# 0.04 X1000 (0.0-0.04); IMM GRAN% 0.6 % (0.0-0.5); LYMPH# 0.98 X1000 (1.2-3.4); LYMPH% 13.7 % (20.5-51.1); MCH 32.2 PG (27-31); MCHC 33.9 g/dL (33-37); MCV 94.9 FL (81-99); MONO# 0.75 X1000 (0.11-0.59); MONO% 10.5 % (1.7-9.3); MPV 11.7 FL (7.4-10.4); NEUT# 5.26 X1000 (1.4-6.5); NEUT% 73.8 % (42.2-75.2); PLT 139 X1000 (130-400); RBC 3.51 XMIL (4.7-6.1); RDW 12.7 % (11.5-14.5); WBC 7.13 X1000 (4.8-10.8)
[2018-12-28 06:41] LABS: AGAP 1; ALBUMIN 2.4 g/dL (3.5-5.0); BUN 26 mg/dL (8-22); CALCIUM 8.5 mg/dL (8.8-10.2); CHLORIDE 105 mmol/L (98-107); COSMO 279; CREATININE 0.9 mg/dL (0.7-1.2); ESTIMATED GFR > 60; GLUCOSE 113 mg/dL (70-104); PHOSPHORUS 2.9 mg/dL (2.7-4.5); POTASSIUM 3.8 mmol/L (3.5-5.1); SODIUM 137 mmol/L (136-145); TCO2 31 mmol/L (25-35)
[2018-12-28 08:45] LABS: ALBUMIN 2.4 g/dL (3.5-5.0); TOTAL BILIRUBIN 1.64 mg/dL (0.20-1.00); TOTAL PROTEIN 4.7 g/dL (6.3-8.3)
[2018-12-28] MEDS: VITAMIN B-1 PO SCH (08:52)
[2018-12-28] MEDS: LOVENOX SUBQ SCH (08:52)
[2018-12-28] MEDS: COZAAR PO SCH ×2 (08:52→21:11)
[2018-12-28] MEDS: CENTRUM SILVER PO SCH (08:52)
[2018-12-28] MEDS: ZANTAC PO SCH ×2 (08:52→21:11)
[2018-12-28] MEDS: ARICEPT PO SCH (08:52)
[2018-12-28] MEDS: NAMENDA PO SCH ×2 (08:52→21:11)
[2018-12-28] MEDS: FLOMAX PO SCH (08:52)
[2018-12-28] MEDS: PROSCAR PO SCH (08:52)
--- NOTE | 2018-12-28 09:15 | PROGRESS NOTE ---
DATE: 12/28/2018 SUBJECTIVE: Mr. Hannon is status post laparoscopic cholecystectomy. He does have a drain in place, which is not draining bile. He remains weak, but otherwise he awakens, he has had some bowel activity, and he is tolerating his diet. His heart rate is 74, blood pressure 168/71, O2 saturation 92%. He is afebrile. His total bilirubin is 1.64, otherwise the liver function tests are essentially within normal limits. PLAN: I will leave his MELINDA drain in place for now. He is on a GI soft diet. Physical Therapy is working with him to increase his mobility and strength. cc: MD Raoul Sommer MD
[2018-12-28 09:46] LABS: INR 0.95; PROTIME 13.4 Seconds (11.0-16.0)
--- NOTE | 2018-12-28 13:07 | PROGRESS NOTE ---
DATE: 12/28/2018 SUBJECTIVE: This morning Mr. Hannon referred to be doing fairly okay. No new complaints. OBJECTIVELY: Vitals: Blood pressure is 130/92, pulse of 93, respiration is 18, temperature 98.3 degrees, patient is saturating 95% on room air. On general exam, Mr. Hannon is an 88-year-old gentleman. He is in bed. He is not in any distress. Mucosa is pink and moist. Anicteric. Acyanotic. Neck is supple. Chest: Good air entry bilateral. There are no crepitations, no rhonchi. Cardiovascular: Regular rate and rhythm. No murmurs, no rubs, no gallops. There is a generator pocket in the left anterior chest wall. Gastrointestinal: Abdomen is soft, minimally distended, but nontender. Bowel sounds present, but there is still a MELINDA drain in place. Central Nervous System: Patient is sleepy, but he is arousable and follows commands. DIAGNOSTIC STUDIES: CBC is reviewed and is unremarkable. Chemistries reviewed and is also unremarkable. Creatinine has normalized. LFTs are slightly elevated. Repeat blood cultures have been negative. ASSESSMENT: 1. Sepsis on presentation secondary to acute gangrenous cholecystitis, complicated with Escherichia coli bacteremia. Repeat blood cultures have been negative. We will get a PICC line for outpatient antimicrobial therapy as dictated by ID. 2. Acute gangrenous cholecystitis status post laparoscopic cholecystectomy. Today is day 5 postoperatively. 3. Postobstructive ileus, improved. The patient has had 2 bowel movements since yesterday. 4. Acute kidney injury, resolved with hydration. 5. Postoperative atrial fibrillation with rapid ventricular response, currently rate controlled. The patient continues to be on beta ron. 6. History of congestive heart failure with ejection fraction of 25% on echocardiogram. The patient is currently euvolemic. Cardiology is on board. 7. Ischemic cardiomyopathy. Noted. 8. Generalized weakness secondary to prolonged hospitalization. The patient has been evaluated by Physical Therapy on 2 occasions, and we will continue to encourage him to maximize his exercise. 9. Transaminitis secondary to ischemic liver injury. This seems to be trending down. DISPOSITION: We are pending Physical Therapy evaluation tomorrow to see if Mr. Hannon will be strong enough to go home or he would need to go to a rehabilitation. He is also going to be needing home IV antibiotics and home health if he chooses to go home. I have discussed the plan with the son who was at the bedside at the time of the encounter. cc: Raoul Jeffries MD
[2018-12-28] MEDS: RISPERDAL PO SCH (21:11)
[2018-12-29] MEDS: LOPRESSOR PO SCH ×4 (02:24→20:40)
[2018-12-29] MEDS: SYNTHROID PO SCH ×2 (05:55→07:02)
[2018-12-29] MEDS ORDERED: NS 250 ML ONE (08:11)
--- NOTE | 2018-12-29 08:44 | INFECTIOUS DISEASE PROGRESS NO ---
DATE: 12/29/2018 PRESENT ILLNESS: The patient has an E. coli bacteremia which originated from his acute cholecystitis. MEDICATIONS: This is the day 3 of treatment with day 1 being the first day that the patient's repeat blood cultures were sterile. The patient currently is receiving IV Ancef. PHYSICAL EXAMINATION: Vital Signs: Temperature is 99 degrees, pulse 80, respirations 16, blood pressure 180/60. General: This is chronically ill-appearing, elderly male. He is in no acute distress. Head, Eyes, Ears, Nose, and Throat: He can hear my spoken words and see near objects. He does not have any white coating of his tongue. Neck: No meningismus. Lungs: Clear to auscultation. Cardiovascular: Heart rate is irregular. Thorax: The patient has a pacemaker present on the left side of his chest. The site is not erythematous or swollen. Abdomen: Soft and nontender. The patient's incision sites where the patient has a drain are not erythematous or purulent. Neurologic: The patient is awake. He can carry on a coherent conversation. He can move his extremities. There is no tremor. LAB AND X-RAY STUDIES: A CBC shows a white count of 7130, hemoglobin is 11.3, platelet count is 139,000. Creatinine is 0.9. GFR is greater than 60. AST is 156. The repeat blood cultures drawn on December 26 are negative. ASSESSMENT AND PLAN: The patient has an Escherichia coli bacteremia which I think originated from his acute cholecystitis. He has a pacemaker in place. Also, he has an enlarging aortic aneurysm. Because of these two illnesses, I plan to treat the patient for 6 weeks with his antibiotics. I am going to switch the patient to Levaquin to be taken orally. When the patient is done with Levaquin, most likely, I will put him on Keflex 500 mg by mouth every 12 hours on a chronic basis because the pacemaker and/or dissecting aneurysm could have become infected while the patient was bacteremic. COMORBIDITIES: The patient is elderly. He has an enlarging aortic aneurysm. He also has a pacemaker in place in the left chest. He also has COPD and atrial fibrillation. cc: MD Raoul Call MD
[2018-12-29] MEDS ORDERED: LEVAQUIN PO SCH (09:00)
[2018-12-29] MEDS: ARICEPT PO SCH (09:56)
[2018-12-29] MEDS: PROSCAR PO SCH (09:56)
[2018-12-29] MEDS: CENTRUM SILVER PO SCH (09:56)
[2018-12-29] MEDS: FLOMAX PO SCH (09:56)
[2018-12-29] MEDS: COZAAR PO SCH ×2 (09:56→20:40)
[2018-12-29] MEDS: NAMENDA PO SCH ×2 (09:56→20:40)
[2018-12-29] MEDS: ZANTAC PO SCH ×2 (09:56→20:40)
[2018-12-29] MEDS: LOVENOX SUBQ SCH (09:56)
[2018-12-29] MEDS: VITAMIN B-1 PO SCH (09:56)
[2018-12-29] MEDS: ROCEPHIN 2 GM in NS 50 ML IV SCH (10:42)
[2018-12-29] MEDS: D5 1/2 NS + KCL 20 MEQ 1,000 ML IV SCH ×2 (10:42)
--- NOTE | 2018-12-29 12:28 | PROGRESS NOTE ---
DATE: 12/29/2018 SUBJECTIVE: This morning, Mr. Hannon refers to be doing well. He just got a PICC line to his right arm. OBJECTIVE: Vital Signs: Blood pressure is 170/70, pulse of 70, respirations are 19, temperature is 98.2 degrees, the patient is saturating 97% on 4 L. General Examination: Mr. Hannon is an 88- year-old, male. He is in bed. No distress. HEENT: Mucosa is pink and moist. Anicteric. Acyanotic. Neck: Supple. Chest: Good air entry bilaterally. A few distant crackles in the posterior lung elliott. Cardiovascular: Regular rate and rhythm. No murmurs, no rubs, no gallops. There is a generator pocket in the left anterior chest wall. GI: Abdomen is soft, nontender. MELINDA drain is still in place. VENDING ATTENDANT: The patient is awake, alert, and oriented. Laboratory Data: None for today. No new physical therapy report. Is and Os: Normal bowel movements. The patient has had 2 bowel movements today. No new imaging studies. Medications have also been reviewed. The patient is currently on one daily ceftriaxone. ASSESSMENT: 1. Sepsis with Escherichia coli bacteremia from acute gangrenous cholecystitis. Subsequent blood cultures have been negative. The patient is currently on once daily ceftriaxone and will follow up with Dr. Bauman. 2. Acute gangrenous cholecystitis, status post laparoscopic cholecystectomy. Today is day 6 postop. The patient is doing well, tolerating a diet. Surgery is on board. 3. Postoperative ileus, improved. 4. Acute kidney injury, resolved. 5. Postoperative atrial fibrillation with rapid ventricular response, currently rate controlled. The patient is on a beta ron. 6. History of congestive heart failure with ejection fraction of 25% on echocardiogram, currently stable. 7. History of ischemic cardiomyopathy. 8. Generalized weakness and deconditioning. Physical therapy is on board. 9. Hepatocellular injury secondary to ischemic liver injury, stable. Patient will follow up with gastroenterology on an outpatient basis. PLAN: In general, I think from a medical standpoint, Mr. Hannon is doing pretty well. His repeat blood cultures have all been negative. A PICC line has been placed in and he has been started on once daily ceftriaxone. All his other comorbidities are stable and from a medical standpoint, he will be okay for discharge with home health. He will also need to follow up with GI at some point with repeat LFTs. Home antibiotic arrangements will need to be done by infectious disease and whenever surgery is okay with the patient, I think he can be discharged. cc: Raoul Jeffries MD MTDD
--- NOTE | 2018-12-29 13:49 | INFECTIOUS DISEASE PROGRESS NO ---
DATE: 12/29/2018 ADDENDUM REPORT: The plans for the patient's antibiotics when he is discharged today have changed. I had the patient on Levaquin, but it can interact with one of the patient's medications. Therefore, I am going to be sending the patient home on Rocephin 2 g IV daily for 40 days. I have given the patient appointment to be seen in the office in 20 days and then in another 20 days, and after he finishes his 6 weeks of Rocephin the patient will be put on Keflex 500 mg p.o. every 12 hours on an indefinite basis because the patient's pacemaker and/or his enlarging aortic aneurysm could have become infected hematogenously while the patient was bacteremic. cc: MD Raoul Call MD
--- NOTE | 2018-12-29 18:02 | GENERAL SURGERY PROGRESS NOTE ---
DATE: 12/29/2018 SUBJECTIVE: The patient overall just feels weak. OBJECTIVE: He is afebrile. Vital signs are stable.General: He is awake and alert, no acute distress. Gastrointestinal: Soft, nontender, nondistended. MELINDA drain nonbilious. ASSESSMENT AND PLAN: An 88-year-old male status post laparoscopic cholecystectomy for acute cholecystitis. Given his recent gram-negative bacteremia, he will go home on IV antibiotics. He already has a PICC line in place. Overall, his strength is quite low, he is deconditioned, and we are pursuing rehabilitation options per the patient's and son's wishes. cc: MD Raoul Salazar MD
[2018-12-29] MEDS: RISPERDAL PO SCH (20:40)
[2018-12-30] MEDS: LOPRESSOR PO SCH ×4 (02:36→20:25)
[2018-12-30] MEDS: SYNTHROID PO SCH ×2 (05:31→06:30)
[2018-12-30] MEDS: VITAMIN B-1 PO SCH (08:57)
[2018-12-30] MEDS: ZANTAC PO SCH ×2 (08:57→20:25)
[2018-12-30] MEDS: ARICEPT PO SCH (08:57)
[2018-12-30] MEDS: CENTRUM SILVER PO SCH (08:57)
[2018-12-30] MEDS: FLOMAX PO SCH (08:57)
[2018-12-30] MEDS: COZAAR PO SCH ×2 (08:57→20:25)
[2018-12-30] MEDS: PROSCAR PO SCH (08:57)
[2018-12-30] MEDS: NAMENDA PO SCH ×2 (08:57→20:25)
[2018-12-30] MEDS: LOVENOX SUBQ SCH (08:58)
--- NOTE | 2018-12-30 10:02 | INFECTIOUS DISEASE PROGRESS NO ---
DATE: 12/30/2018 PRESENT ILLNESS: The patient has an Escherichia coli bacteremia, which originated from his acute cholecystitis. The patient has a pacemaker and also an enlarging aortic aneurysm. Either one or both of these objects could have become infected hematogenously while the patient was bacteremic. MEDICATIONS: I switched the patient yesterday to Rocephin. This is the fourth day of treatment with antibiotics for the patient's infection, with day 1 being the first day that the repeat blood cultures were negative. PHYSICAL EXAMINATION: Vital Signs: Temperature is 98.7 degrees, pulse 85, respirations 18, blood pressure is 160/63. General: This is a chronically ill-appearing, elderly male. He is in no acute distress. HEENT: Can hear my spoken words and see near objects. He does not have any white patches in his mouth. Neck: He does not have any pain in his neck when he moves his neck or his head. Lungs: Clear to auscultation. Cardiovascular: The patient's heart rate is regular. Thorax: The patient has a pacemaker present on the left side of his chest. The site is not swollen, erythematous, or tender. Abdomen: Soft and nontender. The drain has been removed, and the patient had the clips removed from his incisions. Neurologic: The patient is awake. He can move his extremities. There is no tremor. Extremities: The PICC site in the patient's right arm is not red or swollen. IMAGING AND LABORATORY DATA: There is no new lab for today, and there is no x- ray for today. ASSESSMENT AND PLAN: The plan is to have a peripherally-inserted central catheter placed and treat the patient with Rocephin for a total of 40 days. After the patient is done with the intravenous antibiotic, I will place him on Keflex 500 mg by mouth every 12 hours for an indefinite period of time. The patient is having prolonged treatment because, as mentioned earlier, while he was bacteremic, he could have hematogenously seeded his pacemaker and/or aortic aneurysm. The idea of taking the Keflex after the intravenous antibiotic is in case there is still some residual infection, hopefully, the Keflex will keep it controlled. COMORBIDITIES: The patient is elderly. He unfortunately has a pacemaker in place, and an enlarging aortic aneurysm. He also has COPD and atrial fibrillation, but today he is in a regular heart rate. cc: MD Raoul Call MD [facility] CENTERLilly
[2018-12-30] MEDS: ROCEPHIN 2 GM in NS 50 ML IV SCH (10:05)
--- NOTE | 2018-12-30 10:42 | PROGRESS NOTE ---
DATE: 12/30/2018 SUBJECTIVE: This morning Mr. Hannon refers to be doing a lot better. He has been having regular bowel movement, and he is tolerating his diet. MELINDA drain was removed yesterday by Surgery. OBJECTIVE: Vital signs: Blood pressure is 152/60, pulse is 71 respiration is 18, temperature is 98.7 degrees, patient is saturating 95% on nasal cannula. General: Mr. Hannon is an 88-year- old, elderly male. He is in bed. He is not in any distress. HEENT: Mucosa is pink and moist. Anicteric. Acyanotic. Neck: Supple. Chest: Good air entry bilateral. No crepitations. No rhonchi. Cardiovascular: Regular rate and rhythm. No murmurs, no rubs, no gallops. There is an old generator pocket on the left anterior chest wall. GI: Abdomen is soft, minimally distended, but nontender. MELINDA drain has been removed. HYDRANT SETTER: Patient is awake, alert, and oriented. LABORATORY DATA: None for today. CURRENT MEDICATIONS: Medications have also been reviewed; there are no changes. ASSESSMENT: 1. Sepsis associated with Escherichia coli bacteremia from acute gangrenous cholecystitis. Subsequent blood cultures have been negative. The patient is on ceftriaxone. 2. Acute gangrenous cholecystitis status post laparoscopic cholecystectomy. Today is day 7 postoperative. The patient is doing well. 3. Postoperative ileus, improved. 4. Acute kidney injury, resolved. 5. Postoperative atrial fibrillation with rapid ventricular response. The patient is currently rate controlled on beta ron. 6. History of congestive heart failure with ejection fraction of 25% on echocardiogram, currently stable. The patient is euvolemic. 7. History of ischemic cardiomyopathy. 8. Generalized weakness and deconditioning. Physical therapy is on board. 9. Hepatocellular injury secondary to ischemic liver injury, stable. PLAN: So, in general, Mr. Hannon seems to be doing well. He is participating well with physical therapy. There is a plan for a rehabilitation placement for him. Will be pending final arrangement by clinical social worker. The patient is also being seen by Infectious Disease and Cardiology and the primary team is Surgery. From a medical standpoint, anytime there is a rehabilitation bed available, we think Mr. Hannon will be okay for discharge. cc: Raoul Jeffries MD
--- NOTE | 2018-12-30 12:29 | INFECTIOUS DISEASE PROGRESS NO ---
DATE: 12/30/2018 ADDENDUM: The patient is being treated for an E coli bacteremia and the plan is to treat him for 6 weeks because the patient has a pacemaker and an enlarging aortic aneurysm that could have become infected while the patient was bacteremic. The patient is going first to a rehab facility and I have filled out an order sheet with the following orders. Rocephin 2 g IV daily and a CBC with differential and a creatinine to be done every Saturday for as long as the patient is in the rehab facility. Once he leaves the rehab facility and goes home, I have put in a consult for [employer] to supply the patient's IV Rocephin 2 g daily to complete a 6-week treatment course. I have also requested that the patient come to my office in approximately 3 weeks and then again the patient will be seen in 6 weeks from now. At the 6 week appointment, the PICC will be removed and the patient will be started on Keflex 500 mg p.o. every 12 hours on a chronic basis in case either his pacemaker or his enlarging aortic aneurysm became infected while the patient was bacteremic. cc: MD Raoul Call MD
--- NOTE | 2018-12-30 19:43 | GENERAL SURGERY PROGRESS NOTE ---
DATE: 12/30/2018 SUBJECTIVE: The patient is doing well. He is eating some. No acute complaints. No pain, nausea, or vomiting. OBJECTIVE: He is afebrile. Vital signs are stable.General: He is awake, alert, oriented x3. No acute distress. GI: Soft, nontender, nondistended. Incision is clean, dry, and intact. ASSESSMENT/PLAN: An 88-year-old male status post laparoscopic cholecystectomy. He has had gram- negative bacteremia which is now clear, but he requires ongoing antibiotics per Dr. Bauman. We are awaiting placement at [facility] and rehab and we anticipate discharge there tomorrow. cc: MD Raoul Salazar MD
[2018-12-30] MEDS: RISPERDAL PO SCH (20:25)
[2018-12-31] MEDS: LOPRESSOR PO SCH ×2 (02:57→09:05)
[2018-12-31 05:53] LABS: BASO# 0.01 X1000 (0.0-0.2); BASO% 0.1 % (0.0-0.8); EOS% 1.3 % (0.0-10.0); HEMATOCRIT 31.4 % (42.0-52.0); HEMOGLOBIN 10.6 g/dL (14.0-18.0); IMM GRAN# 0.13 X1000 (0.0-0.04); IMM GRAN% 1.7 % (0.0-0.5); LYMPH# 1.17 X1000 (1.2-3.4); LYMPH% 15.4 % (20.5-51.1); MCH 32.1 PG (27-31); MCHC 33.8 g/dL (33-37); MCV 95.2 FL (81-99); MONO# 0.56 X1000 (0.11-0.59); MONO% 7.4 % (1.7-9.3); MPV 11.2 FL (7.4-10.4); NEUT# 5.62 X1000 (1.4-6.5); NEUT% 74.1 % (42.2-75.2); PLT 221 X1000 (130-400); RDW 12.8 % (11.5-14.5); WBC 7.59 X1000 (4.8-10.8)
[2018-12-31] MEDS: SYNTHROID PO SCH (06:02)
[2018-12-31 06:11] LABS: AGAP 5; BUN 18 mg/dL (8-22); CALCIUM 8.5 mg/dL (8.8-10.2); CHLORIDE 105 mmol/L (98-107); COSMO 278; CREATININE 0.8 mg/dL (0.7-1.2); ESTIMATED GFR > 60; GLUCOSE 102 mg/dL (70-104); POTASSIUM 4.1 mmol/L (3.5-5.1); SODIUM 138 mmol/L (136-145); TCO2 28 mmol/L (25-35)
[2018-12-31 09:02] LABS: ALB/GLOB RATIO 1.1; ALBUMIN 2.4 g/dL (3.5-5.0); DIRECT BILIRUBIN 0.3 mg/dL (0.00-0.20); TOTAL BILIRUBIN 0.75 mg/dL (0.20-1.00); TOTAL PROTEIN 4.6 g/dL (6.3-8.3)
[2018-12-31] MEDS: FLOMAX PO SCH (09:06)
[2018-12-31] MEDS: ZANTAC PO SCH (09:06)
[2018-12-31] MEDS: VITAMIN B-1 PO SCH (09:06)
[2018-12-31] MEDS: PROSCAR PO SCH (09:06)
[2018-12-31] MEDS: NAMENDA PO SCH (09:06)
[2018-12-31] MEDS: ARICEPT PO SCH (09:06)
[2018-12-31] MEDS: CENTRUM SILVER PO SCH (09:06)
[2018-12-31] MEDS: LOVENOX SUBQ SCH (09:06)
[2018-12-31] MEDS: COZAAR PO SCH (09:06)
--- NOTE | 2018-12-31 10:10 | INFECTIOUS DISEASE PROGRESS NO ---
DATE: 12/31/2018 PRESENT ILLNESS: The patient has an E. Coli bacteremia which originated from the patient's acute cholecystitis. The patient has a permanent pacemaker and an enlarging aortic aneurysm. Both of these both objects could have become infected while the patient was bacteremic. MEDICATIONS: The patient is on Rocephin 2 g IV daily. PHYSICAL EXAMINATION: Vital Signs: Temperature is 98.2 degrees, pulse 80, respirations 20, blood pressure 157/69, the patient weighs 172 pounds. General: This is an ill-appearing, elderly male. He is in no acute distress. Head, Eyes, Ears, Nose, and Throat: No drainage noted from the nose or ears. Neck: No meningismus. Lungs: Clear to auscultation. Cardiovascular: Heart rate is regular. Abdomen: Soft and nontender. Neurologic: The patient is lethargic this morning. There is no tremor. LAB AND X-RAY: The patient's CBC shows a white count of 7590, hemoglobin 10.6, and platelet count 221,000. Creatinine is 0.8. GFR is greater than 60. There is no new radiographic study this morning. ASSESSMENT AND PLAN: The patient has an Escherichia coli bacteremia. I plan to treat him for a total of 6 weeks with Rocephin in case the patient's pacemaker and/or aortic aneurysm became infected while the patient was bacteremic. After the patient is done with his 6 weeks of intravenous Rocephin, I plan on putting the patient on Keflex 500 mg by mouth every 12 hours in case the pacemaker or aneurysm became infected hematogenously. As it stands now, the patient will be going to a rehab facility. While the patient is at the rehab facility, his antibiotics will be continued. When the patient is dismissed from the rehab facility, [facility] had been consulted yesterday to provide home intravenous antibiotics for the patient. COMORBIDITIES: The patient is elderly. Unfortunately, the computer is down now and I am unable to pull up any information from the computer. Certainly, one comorbidity in this patient is that he is elderly. I cannot remember the patient's other comorbidities and, as mentioned above, the computer is down around the hospital for retrieving information. cc: MD Raoul Call MD
--- NOTE | 2018-12-31 11:16 | GENERAL SURGERY PROGRESS NOTE ---
DATE: 12/31/2018 SUBJECTIVE: The patient is doing well. No abdominal pain, nausea, or vomiting, or fever. He is eating without difficulty. OBJECTIVE: He is afebrile. Vital signs are stable. General: He is awake, alert, oriented x3. No acute distress. GI: Soft, nontender, nondistended. Incision is clean, dry, and intact. Laboratory: CBC and metabolic profile reviewed and unremarkable. ASSESSMENT AND PLAN: An 88-year-old male status post laparoscopic cholecystectomy for acute cholecystitis. He also had gram-negative bacteremia which has since cleared. He is being discharged today to [facility]. Outpatient antibiotics have been arranged by Dr. Bauman. He will follow up with me in 2 to 3 weeks. cc: MD Raoul Salazar MD
[2018-12-31] MEDS: ROCEPHIN 2 GM in NS 50 ML IV SCH (11:40)
--- NOTE | 2018-12-31 11:46 | PROGRESS NOTE ---
DATE: 12/31/2018 SUBJECTIVE: This morning, Mr. Hannon refers to be doing well. He has been discharged to go to a rehab. His vitals stable. OBJECTIVE: Vital Signs: Blood pressure is 137/58, pulse of 73, respiration is 16, temperature 97.9 degrees. Patient is saturating 92% on 4 L. General: On general exam, Mr. Hannon is an 88- year-old male. He is in bed in no distress. HEENT: Mucosa is pink and moist. Anicteric. Acyanotic. Neck: Neck is supple. Chest: Good air entry bilaterally. Few crackles in the posterior lung elliott. Cardiovascular: Regular rate and rhythm. There is an old generator pocket in the left anterior chest wall. GI: Abdomen is soft, nontender. Bowel sounds present. [employer]PA[employer]ER: Patient is awake, alert, and oriented. LABORATORY DATA: CBC is reviewed, unremarkable, except for normocytic anemia. Chemistry is also reviewed, unremarkable. Liver function tests almost normalized. ASSESSMENT: 1. Escherichia coli bacteremia with sepsis secondary to gangrenous cholecystitis. 2. Acute gangrenous cholecystitis status post laparoscopic cholecystectomy. 3. Postoperative ileus, resolved. 4. Acute kidney injury, resolved. 5. Postoperative atrial fibrillation with rapid ventricular response. The patient is currently in sinus. 6. History of congestive heart failure. Ejection fraction of 25%. 7. History of ischemic cardiomyopathy. 8. Hepatocellular liver injury secondary to ischemic episode, resolved. 9. Generalized weakness and deconditioning. Patient is going for rehabilitation. PLAN: At this point, Mr. Hannon is doing well. We agree with him going to a rehab. His repeat blood cultures have been 48 hours negative. The patient has a PICC line. He will continue with ceftriaxone. Infectious Disease will determine the length of therapy. cc: Raoul Jeffries MD
--- NOTE | 2018-12-31 11:54 | DISCHARGE SUMMARY ---
ADMISSION DATE: 12/23/2018 DISCHARGE DATE: 12/31/2018 ADMITTING PHYSICIAN: Dr. Tj Bowers. CONSULTANTS: The Hospitalist program and Cardiology with Dr. Lennon, as well as Infectious Disease with Dr. Zbigniew Bauman. ADMITTING DIAGNOSES: 1. Acute cholecystitis. 2. Urinary tract infection. 3. Gram-negative bacteremia. 4. Chronic obstructive pulmonary disease. 5. Also has a history of hypertension, dementia, testicular cancer, lymphoma and hypothyroidism as well as cardiac arrhythmia. DISCHARGE DIAGNOSES: 1. Acute cholecystitis. 2. Gram-negative bacteremia. 3. Chronic obstructive pulmonary disease. 4. Also has a history of hypertension, dementia, testicular cancer, lymphoma and hypothyroidism as well as cardiac arrhythmia. 5. Postoperative atrial fibrillation with rapid ventricular response and history of atherosclerotic coronary disease and previous myocardial infarction. BRIEF HISTORY: This is an 88-year-old male who presented to the emergency room with severe abdominal pain, weakness and confusion. He was found to have evidence of acute cholecystitis. He was resuscitated and taken urgently to the operating room for cholecystectomy. HOSPITAL COURSE: He underwent laparoscopic cholecystectomy with cholangiogram on the day of admission. For full details, please see the dictated operative report. His gallbladder was noted to be gangrenous in areas and there was significant spillage of purulent bile during the operation. This, however, was washed out and a drain was left postoperatively. In the postoperative ICU, he had difficulty with atrial fibrillation and RVR. He was started on IV diltiazem and eventually metoprolol. Cardiology was consulted and eventually he was able to be weaned off of his rate-controlling drips and he was controlled on oral beta-blockers at the end. His other significant issue during his hospitalization was gram-negative bacteremia secondary to the acute cholecystitis. The blood cultures grew out E coli. However, on 12/26/2018, this had cleared. Dr. Bauman was consulted and maintained him on Zosyn at first but at discharge, he is being put on Rocephin IV for a total of 6 weeks and eventually will be converted to Keflex 500 mg by mouth every 12 hours indefinitely. This is to cover his indwelling pacemaker and abdominal aortic aneurysm which are at risk of being hematogenously infected. He stayed in the ICU several days. Once his blood pressure and heart rate stabilized, he was transferred out to a regular room. His diet was slowly able to be increased from clear liquids to a GI soft diet. He probably had a mild ileus for 2 or 3 days after surgery. He was also quite weak and required significant assistance with therapy to get him out of bed and ultimately he would require rehab after his acute care hospitalization ended. So once rehab was established, he was stable and ready for discharge on 12/31/2018. He was eating without any nausea or vomiting. He had no abdominal pain, no fever. He was having bowel function. His vital signs were stable. His drain had been removed. His CBC and metabolic profile were unremarkable on the day of discharge. He just remained weak and deconditioned. INSTRUCTIONS: No lifting over 15 to 20 pounds. He will initiate physical therapy daily per facility protocol. He can eat a GI soft diet as tolerated. He can shower. Followup appointment with Dr. Bowers in 2 weeks, with Dr. Bauman in 20 days after discharge, Dr. Lennon 1 month after discharge, Dr. Holland on 01/07/2019. DISCHARGE MEDICATIONS: He will resume Centrum Silver 1 p.o. daily, Zantac 150 mg p.o. b.i.d., Synthroid 50 mcg p.o. daily, Cozaar 25 mg p.o. b.i.d., Toprol-XL 25 mg p.o. b.i.d., Proscar 5 mg p.o. daily, Cardura 2 mg p.o. daily, Pepcid 20 mg p.o. daily, Aricept 5 mg p.o. at bedtime, Provera 5 mg p.o. daily, vitamin B1 100 mg p.o. daily, Namenda 5 mg p.o. b.i.d., risperidone 1 mg p.o. at bedtime, Flomax 0.4 mg p.o. daily. cc: MD Raoul Salazar MD Leroy F. Harris, MD William D. Denney, MD Kenneth E. Mashburn, MD
[2018-12-31 11:56] VITALS: BP 140/68
--- NOTE | 2018-12-31 19:29 | PROVIDER DOCUMENTATION ---
This chart was entered by Anita France Scribe, acting as scribe for Tj Jefferson MD. HPI-General Adult - General Chief Complaint: Fall Stated Complaint: WEAKNESS Time Seen by Provider: 12/23/18 10:11 Source: patient, family (son), EMS Allergies/Adverse Reactions: Patient Allergies Allergy/AdvReac Type Severity Reaction Status Date / Time No Known Allergies Allergy Verified 03/31/16 18:45 Home Medications: Home Medication List Medication Instructions Recorded Confirmed Last Taken Type Levothyroxine [Synthroid] 50 mcg PO 0700 04/17/12 12/23/18 12/23/18 History Losartan [Cozaar] 25 mg PO BID 04/17/12 12/23/18 12/23/18 History Metoprolol Succinate E.r. [Toprol 25 mg PO BID 04/17/12 12/23/18 12/23/18 History Xl] Multivitamins/Minerals [Centrum 1 each PO DAILY 04/17/12 12/23/18 12/23/18 History Silver] Ranitidine [Zantac] 150 mg PO BID 04/17/12 12/23/18 12/23/18 History Finasteride [Proscar] 5 mg PO DAILY #0 tablet 12/02/13 12/26/18 12/22/18 Rx Doxazosin Mesylate [Cardura] 2 mg PO DAILY 04/23/14 12/26/18 12/22/18 History Donepezil [Aricept] 5 mg PO QHS 03/31/16 12/23/18 12/22/18 History Famotidine [Pepcid] 20 mg PO DAILY #20 tablet 03/31/16 12/26/18 12/22/18 Rx Medroxyprogesterone [Provera] 5 mg PO DAILY 12/23/18 12/23/18 12/23/18 History Memantine [Namenda] 5 mg PO BID 12/23/18 12/23/18 12/23/18 History Risperidone 1 mg PO QHS 12/23/18 12/23/18 12/22/18 History Tamsulosin [Flomax] 0.4 mg PO DAILY 12/23/18 12/23/18 Unknown History Thiamine [Vitamin B-1] 100 mg PO DAILY 12/23/18 12/23/1819 History - History of Present Illness -Gen Adult Nature of Presenting Problems: 88yom presents to ED by EMS cc fell while sister was trying to help him off toilet because his feet just wouldn't move. Pt reports he did have some very mild abdominal pain last night. Pt denies hitting his head or LOC. Son is at bedside and reports pt has been a little disoriented since yesterday. Pt lives alone but sister comes in 2x daily to help with day to day activities. Pt is A&Ox3. Pt has hx of Parkinsons, Dementia, HTN and a pacemaker. Location of Pain/Injury: reports: none Pain Radiation: reports: no radiation Quality of Pain: reports: none Context/Activities at Onset: reports: light activity Modifying Factors: improves with: nothing Associated Symptoms: reports: denies symptoms Similar Symptoms Previously?: No Recently seen or treated by another doctor?: Yes Review of Systems - Adult - REVIEW OF SYSTEMS - ADULT Constitutional: reports: see HPI, suzanna. denies: chills, fever Eyes: reports: no symptoms reported Ears, Nose, Mouth & Throat: reports: no symptoms reported Cardiovascular: reports: no symptoms reported Respiratory: reports: no symptoms reported Gastrointestinal: reports: abdominal pain. denies: diarrhea, nausea, vomiting Genitourinary: reports: no symptoms reported Musculoskeletal: reports: see HPI. denies: back pain, joint pain, neck pain Integumentary: reports: no symptoms reported Neurological: reports: see HPI, loss of balance, other (fell). denies: headache/migraines, seizure, syncope Psychiatric: reports: no symptoms reported Endocrine: reports: no symptoms reported Hematologic/Lymphatic: reports: no symptoms reported Allergic/Immunologic: reports: no symptoms reported All Other Systems: Reviewed and Negative Past History - Adult - PAST MEDICAL HISTORY-ADULT Review of Records: reports: Nursing Assessment Review, Medications Reviewed, Social history reviewed & non-contributory. Major Childhood Illnesses: reports: denies history Cardiovascular: reports: HTN, hyperlipidemia, pacemaker Respiratory: reports: denies history Gastrointestinal: reports: denies history Obstetrical/Gynecological: reports: denies history Genitourinary: reports: other (enlarged prostate) Musculoskeletal: reports: denies history Neurological: reports: Alzheimer's, dementia Endocrine/Immune: reports: thyroid disorder Other Conditions: reports: other cancer (lymphoma) - PRIOR SURGERIES/PROCEDURES Surgical/Procedure History: reports: hernia repair - IMMUNIZATION STATUS Childhood Immunizations: See Nurse Assessment Flu Vaccine: See Nurse Assessment - FAMILY HISTORY Family History: reviewed, not pertinent - SOCIAL HISTORY Smoking: denies Physical Exam-General - PHYSICAL EXAM-ADULT Initial Vital Signs Reviewed: Yes - CONSTITUTIONAL General Appearance: appears well, alert, no apparent distress. negative: anxious, combative - EYES Eyes: PERRL/EOMI, pink conjunctivae. negative: meningismus, pale conjunctivae, photophobia - HEAD, EARS, NOSE, MOUTH & THROAT HENMT: normocephalic/atraumatic, moist mucous membranes, normal ENT inspection. negative: angioedema, dental decay, hearing deficit - NECK Neck: non-tender, full range of motion, supple, normal inspection. negative: Brudzinski's sign, carotid bruit, C-spine tenderness - RESPIRATORY Respiratory: chest non-tender, lungs clear, normal breath sounds, no pleuratic chest pain, no respiratory distress, no accessory muscle use. negative: crackles, rales, rhonchi, stridor, wheezing - CARDIOVASCULAR Cardiovascular: normal peripheral pulses, regular rate, rhythm, no edema, no gallop, no JVD, no murmur. negative: bradycardia, tachycardia - GASTROINTESTINAL (ABDOMEN) Abdominal Exam: normal bowel sounds, non tender, soft. negative: distended, guarding, rigid, rebound, tenderness - LYMPHATIC Lymphatic: no adenopathy. negative: enlargement, striations, streaking, other - MUSCULOSKELETAL Back Exam: normal inspection, no CVA tenderness, no vertebral tenderness. negative: swelling Extremity: normal range of motion, non-tender, normal gait, normal inspection, no pedal edema, no calf tenderness, normal capillary refill, pelvis stable. negative: deformity - SKIN Integumentary: normal color, normal turgor, warm/dry. negative: cyanosis, diaphoresis, jaundice, laceration(s) - NEUROLOGIC Neurologic: tar leveler II-XII nml as tested, grossly normal, no motor/sensory deficits, other (resting tremor, right side). negative: facial droop, focal weakness - PSYCHIATRIC Psych/Mental Status: normal mood/affect, normal thought content, normal thought process, oriented x 3. negative: disoriented x 3, anxious, disheveled, depressed affect Progress - PLAN OF CARE/RESULTS Progress/Plan/Lab Results: Vital Signs - 8 hr 12/23/18 09:55 Temperature 98.4 F Pulse Rate 86 Respiratory Rate 26 H Blood Pressure 115/63 O2 Sat by Pulse Oximetry 88 L Orders Category Date Time Status Nursing- Obtain EKG once Care 12/23/18 10:18 Active CHEST-2 VIEWS [RAD] Stat Exams 12/23/18 10:[address] HEAD W/O CONTRAST [CT] Stat Exams 12/23/18 10:16 Ordered CBC WITH ELECTRONIC DIFF [HEME] Stat Lab 12/23/18 10:16 Uncollected CK PROFILE [SP CHEM] Stat Lab 12/23/18 10:16 Uncollected COMPREHENSIVE METABOLIC PANEL [CHEM] Stat Lab 12/23/18 10:17 Uncollected PROTIME WITH INR [COAG] Stat Lab 12/23/18 10:16 Uncollected PTT [COAG] Stat Lab 12/23/18 10:16 Uncollected TROPONIN T Stat Lab 12/23/18 10:[address] W/POSS RFLX CULT [URINALYSIS] Stat Lab 12/23/18 10:16 Uncollect ed Result Diagrams: 12/31/18 05:39 12/31/18 05:39 - REASSESSMENT Reassessment #1 Time Reassessed: 12:58 Status: other (very mild tenderness in RUQ) - EKG 1 Time of EKG reading by physician:: 11:11 EKG Read and Signed by:: Tj Jefferson EKG Interpretation (*Must complete 3 of following elements*): Abnormal (prolonged QT T wave abnormality, consider anterolateral ischemia) Rate: 84 Rhythm: sinus rhythm with occassional ventricular paced complexes [place]: left QRS: PVC's (occassional) - XRAY 1 XRAY: Bilateral XRAY Study: Chest Impression: See EMR Report (IMPRESSION: Nonspecific findings. Electronically signed by Yoni Massey 12/23/2018 11:00 AM) - CT/MRI 1 CT Study: Head Impression: See EMR Report (IMPRESSION: 1.No hemorrhage. No injury. 2.Atrophy 3.Chronic ischemic changes with old lacunar infarcts. This exam was performed using automated exposure control, adjustment of mA or kV according to patient size, and/or use of iterative reconstruction technique. Electronically signed by Kushal Kumar 12/23/2018 10:55 AM) 2 CT Study: Abdomen, Pelvis Impression: See EMR Report (IMPRESSION: 1. Negative for pulmonary embolism. 2. Cardiomegaly. 3. Acute cholecystitis. 4. Enlarging abdominal aortic aneurysm. This exam was performed using automated exposure control, adjustment of mA or kV according to patient size, and/or use of iterative reconstruction technique Electronically signed by Yoni Massey 12/23/2018 12:49 PM) - CONSULTS/PCP/HOSPITALIST Notification #1 *Consult/PCP/Hospitalist*: Dr. Bowers/Surgery Time Discussed: 12:58 Consult Disposition: Admit (admit to Dr. Bowers and transfer to [facility]) Departure - Departure Date of Disposition Decision: 12/23/18 Time of Disposition Decision: 13:01 DIAGNOSIS: Cholecystitis Disposition: ADMITTED INPATIENT 09 Certified Medical Emergency: Emergent Condition: Serious - Critical Care Note This patient required my direct & personal management of CC.: No Attestation - Physician/ ANDRIA Attestation Patient care was provided by Advanced Practice Provider:: No The physician spent face to face time with patient:: Yes Advanced Practice Provider documentation review:: Supervising physician onsite and consulted in the evaluation and care of this patient. The physician did have a face to face encounter with the patient. This chart was documented by the indicated scribe, (Anita France Scribe) and accurately reflects the services I performed and decisions made by me, Tj Jefferson MD, as attested by the provider's signature.
== END 2018-12-31 14:30 | DRG 854 ==
LOC: SUPCPDRO → P.ED 09:52 → 4N 09:53 → ICU 19:33 → 3S 12-26 18:21
PROVIDERS: ADMIT Internal Medicine; ATTEND Surgery
CPT/HCPCS: 36569; 70450; 71010; 71020; 71045; 71046; 71275; 74177; 74300; 80048; 80053; 80069; 80076; 81001; 82550; 82553; 83605; 84443; 84484; 85014; 85018; 85025; 85027; 85379; 85610; 85730; 87040; 87077; 87088; 87186; 88304; 93005; 93010; 93306; 94760; 94761; 96365; 97110; 97162; 97530; 99285; A9270; C1751; J0131; J0150; J0153; J0330; J0592; J0690; J0696; J1170; J1650; J2370; J2405; J2543; J3010; J3480; J7030; J7040; J7050; J7120; Q9966; Q9967; S0138